=== PATIENT | female | born 1975 ===

== ENCOUNTER 2020-05-07 09:12 | Outpatient (REF) | payer OTHER, SELFPAY | END 2020-05-07 09:13 | disposition home or self-care (01) | LOC: HO.LAB 09:12 | PROVIDERS: Visit Provider Internal Medicine | DX: Z20.828 Contact with and (suspected) exposure to other viral communicable diseases (principal) | CPT/HCPCS: C9803; U0003 ==

== ENCOUNTER 2020-06-20 13:46 | Outpatient (REF) | payer OTHER, SELFPAY ==
--- NOTE | ~2020-06-20 | US_ITS ---
EXAMINATION: US THYROID CLINICAL INFORMATION: Thyroid nodule. COMPARISON: Ultrasound soft tissue head/neck thyroid dated 11/10/2019 and 04/23/2018. TECHNIQUE: Linear transducer grayscale and color Doppler examination with attention to the region of the thyroid. FINDINGS: SIZE: Measurements of the thyroid lobes and nodules are given in sagittal, anteroposterior and transverse dimensions respectively. Right Thyroid Lobe: 2.9 x 1.4 x 1.4 cm, volume 3.1 mL. Previously 3.1 x 1.6 x 1.5 cm, volume 3.9 mL. Parenchyma: The gland echotexture is homogeneous. Thyroid vascularity is normal. Left Thyroid Lobe: 2 x 0.9 x 1.0 cm, volume 0.9 mL. Previously 2.6 x 0.8 x 1.3 cm, volume 1.4 mL. Parenchyma: The gland echotexture is homogeneous. Thyroid vascularity is normal. Isthmus: 0.3 cm in maximum AP dimension. Previously 0.2 cm. Estimated total number of nodules greater than or equal to 1 cm: 1. Surg Physician Asst nodules are described as follows: 1. Location: Right mid. Size: 1.6 x 1.3 x 1.1 cm, volume 1.1 mL. Previously: 1.7 x 1.5 x 1.2 cm, volume 1.6 mL. Nodule characteristics: Composition: Solid (2). Echogenicity: Isoechoic (1). Shape: Not taller than wide (0). Margins: Smooth (0). Echogenic Foci: None (0). ACR TI-RADS total points: 3 ACR TI-RADS category: 3 Significant change in size (>/= 20% in 2 dimensions and minimal increase of 2 mm): None Change in features: None Change in ACR TI-RADS risk category: None NODES: No lymphadenopathy is seen in the tissue surrounding the thyroid gland. US/US thyroid IMPRESSION: Solitary nodule right mid pole, unchanged to previous study in size and characteristics. Recommend continued followup. ACR TI-RADS RECOMMENDATIONS: Ultrasound-guided fine-needle aspiration, followup ultrasound, no further follow up. * TR1 (0 point) and TR 2 (2 points): No FNA or follow up * TR3 (3 points): FNA if more than or equal to 2.5 cm in maximum dimension, follow up in 1, 3 and 5 years if 1.5 to 2.4 cm in maximum dimension. * TR4 (4-6 points): FNA if more than or equal to 1.5 cm in maximum dimension, follow up in 1, 2, 3 and 5 years if 1 to 1.4 cm in maximum dimension. * TR5 (more than or equal to 7 points): FNA if more than or equal to 1 cm in maximum dimension, follow up every year for 5 years if 0.5 to 0.9 cm in maximum dimension. * TR3, TR4 or TR5 nodules that are below the size threshold for follow up receive no follow up.
== END 2020-06-20 13:47 | disposition home or self-care (01) ==
LOC: HO.US 13:46
PROVIDERS: PCP Family Medicine; Visit Provider Internal Medicine Endocrinology, Diabetes & Metabolism
DX: E04.1 Nontoxic single thyroid nodule (principal)
CPT/HCPCS: 76536

== ENCOUNTER → 2020-07-06 09:00 | Outpatient (BNVA) | payer OTHER, SELFPAY | PROVIDERS: PCP Family Medicine; Visit Provider Internal Medicine Endocrinology, Diabetes & Metabolism | CPT/HCPCS: Q3014 ==

== ENCOUNTER 2020-08-02 20:36 | Emergency (ER) | payer OTHER, SELFPAY ==
[2020-08-02 20:55] VITALS: BP 124/74; PULSE 79; RESP 16; TEMP 36.9; O2SAT 99; BMI 29.7
--- NOTE | 2020-08-02 22:28 | ED.PSYCH ---
HPI - Psych General Chief Complaint: Psychiatric Symptoms Stated Complaint: depression Time Seen by Provider: 08/02/20 22:16 Source: patient Mode of arrival: ambulatory Limitations: no limitations History of Present Illness HPI Narrative: Patient comes to the emergency room complaining of depression. Patient denies suicidal or homicidal ideation. Patient does have a therapist and a psychiatrist, states she is compliant with the medication. Patient requesting to talk to somebody. Otherwise patient has no complaints. MD complaint: feels depressed Related Data Home Medications Medication Instructions Recorded Confirmed bupropion HCl 150 mg tablet,12 hr 0 mg PO 07/06/20 07/06/20 sustained-release buspirone 15 mg tablet 15 mg PO BID 07/06/20 07/06/20 cyanocobalamin (vitamin B-12) 1,000 mcg PO DAILY 07/06/20 07/06/20 1,000 mcg tablet docusate sodium 100 mg capsule 100 mg PO BID 07/06/20 07/06/20 risperidone 2 mg tablet 2 mg PO QAM 07/06/20 07/06/20 risperidone 4 mg tablet 4 mg PO BEDTIME 07/06/20 07/06/20 topiramate 50 mg tablet 50 mg PO DAILY 07/06/20 07/06/20 trazodone 50 mg tablet [id number] mg PO BEDTIME PRN 07/06/20 07/06/20 venlafaxine 150 mg 150 mg PO DAILY 07/06/20 07/06/20 capsule,extended release 24 hr Previous Rx's Medication Instructions Recorded cholecalciferol (vitamin D3) 125 5,000 unit PO DAILY 90 Days #90 cap 07/06/20 mcg (5,000 unit) capsule finasteride 5 mg tablet 5 mg PO DAILY 90 Days #90 tab 07/06/20 levothyroxine 125 mcg tablet 125 mcg PO QAM 90 Days #90 tab 07/06/20 metformin 500 mg tablet,extended 500 mg PO BEDTIME 90 Days #90 tab 07/06/20 release 24 hr pravastatin 20 mg tablet 20 mg PO DAILY 90 Days #90 tab 07/06/20 Allergies Allergy/AdvReac Type Severity Reaction Status Date / Time No Known Allergies Allergy Unverified 08/02/20 21:16 seasonal allergies Allergy Unknown Nasal Uncoded 08/02/20 21:16 congestion Review of Systems Review of Systems: Constitutional : No Weight loss, No Fever, No Chills, No Night Sweats, No Fatigue, No Malaise ENT/Mouth : No Hearing loss, No Ear Pain, No Nasal Congestion, No Sinus Pain, No Hoarseness, No sore throat, No Rhinorrhea, No Swallowing Difficulty Eyes: No Eye Pain, No Swelling, No Redness, No Foreign Body, No Discharge, No Vision Changes Cardiovascular : No Chest Pain, No SOB, No Dyspnea on Exertion, No Orthopnea, No Edema, No Palpitations Respiratory : No Cough, No Sputum, No Wheezing, No Smoke Exposure, No Dyspnea Gastrointestinal : No Nausea, No Vomiting, No Diarrhea, No Constipation, No abdominal Pain, No Hematochezia, No Melena Genitourinary : no irregular bleeding, No Dysuria, No Urinary Frequency, No Hematuria, No Urinary Incontinence, No Urgency, No Flank Pain, No Urinary Flow Changes, No Hesitancy Musculoskeletal : No joint pain, No Myalgias, No Joint Swelling Skin : No Skin Lesions, No rash Neuro : No Weakness, No Numbness, No Paresthesias, No Loss of Consciousness, No Dizziness, No Headache Psych : No Anxiety/Panic, complaining of depression, No SI/HI/AH/VH, No Social Issues, Heme/Lymph: No Bruising, No Bleeding,No Lymphadenopathy Endocrine : No Polyuria, No Polydipsia, No Temperature Intolerance PMFSH Past Medical History Medical History Bipolar disorder Dyslipidemia Hypothyroidism Obesity (BMI 30-39.9) PCOS (polycystic ovarian syndrome) Thyroid nodule Vitamin D deficiency Surgical History History of surgical removal of skin lesion Family History Family History Father No problems noted. Mother No problems noted. Maternal Grandmother Diabetes mellitus Social History Social History (Updated 07/06/20 @ 09:13 by KYA Finnegan) Smoking Status: Former smoker Advance Directives: No Advance Directives Information Provided: No Physical Exam Vital Signs: Vital Signs: Last Vital Signs Temp 98.4 F 08/02/20 20:55 Pulse 79 08/02/20 20:55 Resp 16 08/02/20 20:55 BP 124/74 08/02/20 20:55 Pulse Ox 99 08/02/20 20:55 Body Mass Index 29.7 Appearance: Alert. Oriented X3. No acute distress. Eyes: Pupils equal, round and reactive to light. ENT: Pharynx normal. Neck: Normal inspection. Neck supple. No lymph nodes noted. No crepitus CVS: Normal heart rate and rhythm. Pulses normal. Normal S1 and S2 Respiratory: No respiratory distress. Breath sounds normal. No Wheezing. No rales Abdomen: Soft and nontender. No rigidity. No distention. good BS x4 Skin: Skin warm and dry. Normal skin color. Normal skin turgor. Extremities: No lower extremity edema. No lower extremity edema. No Lacerations. No Rash Neuro: Oriented X 3. No motor deficit. No sensory deficit. Moving all extermities. No slurred speech. Course Course Course Narrative: Care Team consult pending Care team evaluated the patient, patient was offered partial hospitalization, given information. Patient continues denying suicidal homicidal ideation. Patient ready for discharge Discharge Plan Discharge Clinical Impression: Depression Qualifiers: Depression Type: unspecified Qualified Code(s): F32.9 - Major depressive disorder, single episode, unspecified Patient Disposition: Home, Self-Care Instructions: Depression (ED) Additional Instructions: Please follow-up with your primary care physician tomorrow. If you have any worsening or new symptoms, please return to the emergency room or call 911 Prescriptions: No Action docusate sodium 100 mg capsule 100 mg PO BID RF: 0 risperidone 2 mg tablet 2 mg PO QAM RF: 0 risperidone 4 mg tablet 4 mg PO BEDTIME RF: 0 cyanocobalamin (vitamin B-12) 1,000 mcg tablet 1,000 mcg PO DAILY RF: 0 topiramate 50 mg tablet 50 mg PO DAILY RF: 0 buspirone 15 mg tablet 15 mg PO BID RF: 0 venlafaxine 150 mg capsule,extended release 24hr 150 mg PO DAILY RF: 0 trazodone 50 mg tablet [id number] mg PO BEDTIME PRNRF: 0 bupropion HCl 150 mg tablet sustained-release 12 hr 0 mg PO RF: 0 finasteride 5 mg tablet 5 mg PO DAILY 90 Days Qty: 90 RF: 2 metformin 500 mg tablet extended release 24 hr 500 mg PO BEDTIME 90 Days Qty: 90 RF: 1 levothyroxine 125 mcg tablet 125 mcg PO QAM 90 Days Qty: 90 RF: 3 cholecalciferol (vitamin D3) 125 mcg (5,000 unit) capsule 5,000 unit PO DAILY 90 Days Qty: 90 RF: 1 pravastatin 20 mg tablet 20 mg PO DAILY 90 Days Qty: 90 RF: 1
--- NOTE | 2020-08-02 22:48 | MHC.CARE ---
CARE team support requested for 45 year old female who presented to ED endorsing worsening symptoms of depression and wanting someone to talk to. Pt reported that she has been feeling more depressed over the past 3 days and doesn't feel that her medications have been helpful. Pt wasn't able to identify a specific trigger, though did share that her depressed and anxious moods tend to coincide with things going wrong. Pt denied experiencing any thoughts of or suicide, recent attempts to harm herself, and thoughts or urges to harm others. Pt denied experiencing AVH and did not present as responding to internal stimuli. Pt has a history of command auditory hallucinations telling her to harm herself and one past suicide attempt via intentional overdose. Pt's medications are locked up and administered by a visiting nurse each day. Pt reported that she lives with her 18 year old daughter and her dog, and has several close friends whom she sees and speaks to on a daily basis. Pt is connected with a therapist (Caitlin Lugo) and a psychiatrist (Dr. Ruiz) through [facility] and has worked with both of them for many years. Pt's last appt with Dr. Ruiz was 06/13/20 and she doesn't have an upcoming appt scheduled at this time, and pt's last session with her therapist was on 07/13/20 and pt has been trying to reschedule an appt she missed last week. Pt was encouraged to reach out to both her psychiatrist and her therapist to schedule appointments, and to speak with her therapist about transitioning from biweekly to weekly sessions to provide additional support. This pattern chart writer spoke with pt about PHP, and pt declined interest in the program at this time however accepted information pamphlet and contact information if she were to change her mind. ED provider updated re: recommendations and resources provided.
== END 2020-08-02 23:12 | disposition home or self-care (01) ==
PROVIDERS: Emergency Provider Emergency Medicine; PCP Family Medicine
DX: F32.9 Major depressive disorder, single episode, unspecified (principal); E78.5 Hyperlipidemia, unspecified; Z79.899 Other long term (current) drug therapy; Z87.891 Personal history of nicotine dependence
CPT/HCPCS: 99283

== ENCOUNTER 2020-11-24 08:54 | Outpatient (REF) | payer OTHER, SELFPAY ==
[2020-11-24 10:23] LABS: Estimated Average Glucose 103 mg/dL; Hemoglobin A1c % 5.2 %
[2020-11-24 11:03] LABS: Alanine Aminotransferase 15 U/L (0-31); Albumin Level 4.2 g/dL (3.5-5.0); Alkaline Phosphatase 67 U/L (39-117); Anion Gap 11 (12-20); Aspartate Amino Transferase 16 U/L (5-31); Bilirubin Total 0.5 mg/dL (0.0-1.0); Blood Urea Nitrogen 12 mg/dL (9-16); Calcium 9.9 mg/dL (8.4-10.2); Carbon Dioxide 26 mmol/L (22-29); Chloride 109 mmol/L (96-108); Cholesterol 167 mg/dL; Estimated Glomerular Filt Rate > 60; Glucose Fasting 95 mg/dL (60-99); HDL Cholesterol 53 mg/dL; LDL Cholesterol Calculated 92 mg/dl; Potassium 4.8 mmol/L (3.3-5.1); Sodium 141 mmol/L (135-145); Total Protein 6.7 g/dL (6.5-8.0); Triglycerides 112 mg/dL
[2020-11-24 11:24] LABS: Free T4 (Free Thyroxine) 1.24 ng/dL (0.71-1.85); Thyroid Stimulating Hormone 0.09 uIU/mL (0.32-4.0); Vitamin D 25-OH Total 63.8 ng/mL (>30)
[2020-11-24 11:29] LABS: Vitamin B12 1698 pg/mL (200-900)
[2020-11-26 05:37] LABS: Sex Hormone Binding Globulin 78 nmol/L (17-124)
[2020-11-26 08:52] LABS: LDL Cholesterol Direct 120 mg/dL (<100)
[2020-11-29 18:41] LABS: Testosterone, Free 8.1 pg/mL (0.1-6.4); Testosterone, Total 89 ng/dL (2-45)
== END 2020-11-24 08:55 | disposition home or self-care (01) ==
LOC: CF 08:54
PROVIDERS: PCP Family Medicine; Visit Provider Internal Medicine Endocrinology, Diabetes & Metabolism
DX: E28.2 Polycystic ovarian syndrome (principal); E55.9 Vitamin D deficiency, unspecified; E89.0 Postprocedural hypothyroidism; E66.9 Obesity, unspecified; E78.5 Hyperlipidemia, unspecified; Z79.899 Other long term (current) drug therapy
CPT/HCPCS: 36415; 80053; 80061; 82306; 82607; 83036; 83721; 84270; 84402; 84403; 84439; 84443; 99212

== ENCOUNTER 2020-12-12 11:21 | Emergency (ER) | payer OTHER, SELFPAY ==
--- NOTE | ~2020-12-12 | CT_ITS ---
EXAMINATION: CT HEAD WITHOUT CONTRAST CLINICAL INFORMATION: Headache. COMPARISON: None TECHNIQUE: Contiguous axial imaging was performed from the skull base to vertex without intravenous administration of contrast. This CT examination was performed using dose optimization techniques as appropriate, variously including the following: *Automated exposure control *Adjustment of mA and/or kV according to patient size (this includes techniques or standardized protocols for targeted exams where dose is matched to indication/reason for exam; i.e. extremities or head) *Use of iterative reconstruction technique DLP: 763 mGy-cm FINDINGS: There is no evidence of acute intracranial hemorrhage or territorial infarction. No abnormal mass effect or midline shift is seen. Parham to white matter differentiation is well preserved. No extra-axial fluid collections are identified. The ventricles are normal in size. There is no abnormal attenuation within the brain parenchyma. The osseous structures and soft tissues are normal. The mastoid air cells and visualized portions of the paranasal sinuses are well aerated. CT/CT head/brain wo con IMPRESSION: No acute intracranial process seen.
[2020-12-12 13:31] VITALS: BP 126/60; PULSE 71; RESP 18; TEMP 36.8; O2SAT 98; BMI 28.0
--- NOTE | 2020-12-12 14:58 | ED.GENADULT ---
HPI - General Adult General Chief complaint: General Medical Stated complaint: multiple complaints Time Seen by Provider: 12/12/20 14:34 Source: patient and ophthalmic nurse Mode of arrival: ambulatory Limitations: no limitations History of Present Illness HPI narrative: 45-year-old female came in for evaluation of headache. Headache started a week ago, discarded has mild headache 5/10, constant for the past week but fluctuates, deemed not radiate, pain is associated with nausea but no vomiting, also associated with blurry vision, feeling pins and needle in both sides of upper and lower extremities. Patient with history polycystic ovarian syndrome, patient just started spironolactone 10 days ago that patient's think her symptoms is related to this medication. Related Data Home Medications Medication Instructions Recorded Confirmed buspirone 15 mg tablet 15 mg PO BID 07/06/20 11/24/20 cyanocobalamin (vitamin B-12) 1,000 mcg PO DAILY 07/06/20 11/24/20 1,000 mcg tablet docusate sodium 100 mg capsule 100 mg PO BID 07/06/20 11/24/20 risperidone 2 mg tablet 2 mg PO QAM 07/06/20 11/24/20 risperidone 4 mg tablet 4 mg PO BEDTIME 07/06/20 11/24/20 topiramate 50 mg tablet 50 mg PO DAILY 07/06/20 11/24/20 trazodone 50 mg tablet [id number] mg PO BEDTIME PRN 07/06/20 11/24/20 venlafaxine 150 mg 150 mg PO DAILY 07/06/20 11/24/20 capsule,extended release 24 hr bupropion HCl 150 mg tablet,12 hr 150 mg PO DAILY tab 11/24/20 11/24/20 sustained-release cetirizine 10 mg tablet 10 mg PO DAILY PRN 11/24/20 11/24/20 Previous Rx's Medication Instructions Recorded pravastatin 20 mg tablet 20 mg PO DAILY 90 Days #90 tab 07/06/20 cholecalciferol (vitamin D3) 125 5,000 unit PO DAILY 90 Days #90 cap 11/24/20 mcg (5,000 unit) capsule finasteride 5 mg tablet 5 mg PO DAILY 90 Days #90 tab 11/24/20 levothyroxine 112 mcg tablet 112 mcg PO DAILY 90 Days #90 tab NS 11/24/20 metformin 500 mg tablet,extended 500 mg PO BEDTIME 90 Days #90 tab 11/24/20 release 24 hr spironolactone 25 mg tablet 25 mg PO BID 30 Days #60 tab 11/30/20 Allergies Allergy/AdvReac Type Severity Reaction Status Date / Time No Known Allergies Allergy Unverified 08/02/20 21:16 seasonal allergies Allergy Unknown Nasal Uncoded 08/02/20 21:16 congestion Review of Systems Review of Systems: All other systems are reviewed and are negative Constitutional: Reports as per HPI and Reports no additional constitutional complaints Eyes: Reports as per HPI and Reports no additional eye complaints Reports system reviewed and no additional complaints, except as documented Cardiovascular: Reports as per HPI and Reports no additional cardiovascular complaints Respiratory: Reports as per HPI and Reports no additional respiratory complaints Gastrointestinal: Reports as per HPI and Reports no additional gastrointestinal complaints Genitourinary: Reports no additional female genitourinary complaints Musculoskeletal: Reports no additional musculoskeletal complaints Skin/Breast: Reports system reviewed and no additional complaints, except as docu Psychiatric: Reports no additional psychiatric complaints Endocrine: Reports no additional endocrine complaints Hematologic/Lymphatic: Reports no additional hematologic/lymphatic complaints Allergic/Immunologic: Reports no additional allergic/immunologic complaints Reports system reviewed and no additional complaints, except as documented and Reports Abnormal speech present [facility] Past Medical History Medical History Bipolar disorder Dyslipidemia Hypothyroidism Obesity (BMI 30-39.9) PCOS (polycystic ovarian syndrome) Thyroid nodule Vitamin D deficiency Surgical History History of surgical removal of skin lesion Family History Family History Father No problems noted. Mother No problems noted. Maternal Grandmother Diabetes mellitus Social History Social History Alcohol intake: never Smoked in Last 30 Days: No Use of substances other than those prescribed or required for medical reasons: No Advance Directives: No Advance Directives Information Provided: No Patient : No Physical Exam Vital Signs: Vital Signs: Last Vital Signs Temp 98.3 F 12/12/20 13:31 Pulse 71 12/12/20 13:31 Resp 18 12/12/20 13:31 BP 126/60 12/12/20 13:31 Pulse Ox 98 12/12/20 13:31 Body Mass Index 28.0 Vital signs have been reviewed as appeared to be correct. Blood pressure normal. Heart rate normal. Respiration rate normal. Temperature normal. Oxygen saturation normal. Appearance: Alert. Oriented X3. No acute distress. Head: Normal external exam. Normocephalic. Atraumatic. No Stewart signs noted. No raccoon eyes noted Eyes: PERRLA. EOMI. Conjunctiva and sclera normal. Eyelids normal. ENT: TM's Normal. Pharynx normal. Uvula midline. Moist mucous membranes. No trismus noted. No drooling noted. No muffled voice noted. Neck: Normal inspection. Neck supple. FROM. No adenopathy. Thyroid Normal. No meningeal signs. No neck mass noted. CVS: Normal heart rate and rhythm. Heart sound normal. No murmurs noted. Pulses normal throughout. Respiratory: No respiratory distress. Painless inspiration. Breath sounds normal. No wheezes/rales/rhonchi noted. Chest nontender. No accessory muscle usage noted or decreased air movement noted. Abdomen: Soft and nontender. Bowel sounds normal in all 4 quadrants. No distention noted. No organomegaly noted. No visible injury noted. Back: No CVA tenderness. Full range of motion noted. Skin: Skin warm and dry. Normal skin color. Normal skin turgor. No rashes/lesions/lacerations noted. Extremities: No lower extremity edema. Extremities exhibit normal range of motion. Extremities nontender. Neuro: Oriented X 3. No motor deficit. No sensory deficit. Reflexes normal. Course Course Course Narrative: Assessment and plan. 45-year-old female came in with nonspecific headache for few weeks, patient has a normal neuro exam, normal CT of the head, no urinary tract infection symptoms. Patient in the room on her phone appear very comfortable with no photophobia or neck stiffness. Patient will be discharged to follow-up with her PCP/OBGYN patient's symptoms can be secondary to spironolactone that she use for hormonaltherapy for polycystic ovarian syndrome. Medical Decision Making Lab Data Lab results reviewed: Yes I reviewed the patient's lab results. Result diagrams: 12/12/20 15:22 12/12/20 15:22 Labs: Lab Results 12/12/20 12/12/20 12/12/20 Range/Units 15:12 15:22 15:22 WBC 7.4 (4.8-10.8) X10*3/uL RBC 5.18 (4.20-5.50) X10*6/uL Hgb 13.6 (12.0-16.0) g/dl Hct 41.3 (37-47) % MCV 79.7 L (80-98) fL MCH 26.3 L (27.0-33.0) pg MCHC 32.9 (31.0-35.0) g/dl RDW 13.3 (11.0-16.0) % Plt Count 288 (160-400) X10*3/uL MPV 11.0 (9.4-12.3) fL Absolute Nucleated RBC 0.000 (0.0-0.012) X10*3/uL Nucleated RBC % (auto) 0.0 (0.0-0.2) /100WBC Sodium 140 (135-145) mmol/L Potassium 4.5 (3.3-5.1) mmol/L Chloride 107 (96-108) mmol/L Carbon Dioxide 23 (22-29) mmol/L Anion Gap 15 (12-20) BUN 13 (9-16) mg/dL Creatinine 0.71 (0.5-1.4) mg/dL Estim Creat Clear Calc 106.0 Estimated GFR > 60 Random Glucose 88 (60-115) mg/dL Calcium 9.5 (8.4-10.2) mg/dL Urine Color YELLOW Urine Appearance HAZY Urine pH 6.0 (5.0-8.0) Ur Specific Douglas >= 1.030 H (1.005-1.025) Urine Protein NEG (NEG-TRACE) MG/DL Urine Glucose (UA) NEG (NEG) MG/DL Urine Ketones NEG (NEG) MG/DL Urine Blood NEG (NEG) Urine Nitrite NEG (NEG) Ur Leukocyte Esterase 2+ H (NEG) Urine RBC 0 (0) /HPF Urine WBC 0 (0-4) /HPF Ur Squamous Epith Cells 2+ /LPF Urine Bacteria 2+ /LPF Imaging Data CT scan - head: Radiologist's impression: No acute intracranial process seen. Discharge Plan Discharge Clinical Impression: Headache Patient Disposition: Home, Self-Care Instructions: General Headache (ED) Prescriptions: No Action levothyroxine 112 mcg tablet 112 mcg PO DAILY 90 Days Qty: 90 RF: 3 spironolactone 25 mg tablet 25 mg PO BID 30 Days Qty: 60 RF: 5 cetirizine 10 mg tablet 10 mg PO DAILY PRN (Reason: allergies) RF: 0 cholecalciferol (vitamin D3) 125 mcg (5,000 unit) capsule 5,000 unit PO DAILY 90 Days Qty: 90 RF: 1 finasteride 5 mg tablet 5 mg PO DAILY 90 Days Qty: 90 RF: 2 metformin 500 mg tablet extended release 24 hr 500 mg PO BEDTIME 90 Days Qty: 90 RF: 1 docusate sodium 100 mg capsule 100 mg PO BID RF: 0 risperidone 2 mg tablet 2 mg PO QAM RF: 0 risperidone 4 mg tablet 4 mg PO BEDTIME RF: 0 cyanocobalamin (vitamin B-12) 1,000 mcg tablet 1,000 mcg PO DAILY RF: 0 topiramate 50 mg tablet 50 mg PO DAILY RF: 0 buspirone 15 mg tablet 15 mg PO BID RF: 0 venlafaxine 150 mg capsule,extended release 24hr 150 mg PO DAILY RF: 0 trazodone 50 mg tablet [id number] mg PO BEDTIME PRNRF: 0 pravastatin 20 mg tablet 20 mg PO DAILY 90 Days Qty: 90 RF: 1 bupropion HCl 150 mg tablet sustained-release 12 hr 150 mg PO DAILY RF: 0 Referrals: Heidi Gomez MD [Primary Care Provider] - 2 days
[2020-12-12 15:18] LABS: Glucose Urine UA NEG (NEG); Leukocyte Esterase Urine 2+ (NEG); Nitrite Urine NEG (NEG); Specific Gravity - Urine >= 1.030 (1.005-1.025); UACC Culture Trigger YES; Urine Blood NEG (NEG); Urine Ketones NEG (NEG); Urine Protein NEG (NEG-TRACE)
[2020-12-12 15:20] LABS: Appearance Urine HAZY; Color Urine YELLOW
[2020-12-12] MEDS: Acetaminophen 325 MG TABLET 650 MG PO (15:28)
[2020-12-12 15:30] LABS: Hematocrit 41.3 % (37-47); Hemoglobin 13.6 g/dl (12.0-16.0); Mean Corpuscular HGB Conc 32.9 g/dl (31.0-35.0); Mean Corpuscular Hemoglobin 26.3 pg (27.0-33.0); Mean Corpuscular Volume 79.7 fL (80-98); Platelet Count 288 X10*3/uL (160-400); Red Blood Count 5.18 X10*6/uL (4.20-5.50); Red Cell Distribution Width 13.3 % (11.0-16.0); White Blood Count 7.4 X10*3/uL (4.8-10.8)
[2020-12-12 15:32] LABS: Bacteria Urine 2+ /LPF; RBC Urine 0 /HPF (0); Squamous Epithelial Cell Urine 2+ /LPF; WBC Urine 0 /HPF (0-4)
[2020-12-12 15:51] LABS: Anion Gap 15 (12-20); Blood Urea Nitrogen 13 mg/dL (9-16); Calcium 9.5 mg/dL (8.4-10.2); Carbon Dioxide 23 mmol/L (22-29); Chloride 107 mmol/L (96-108); Estimated Glomerular Filt Rate > 60; Glucose Random 88 mg/dL (60-115); Potassium 4.5 mmol/L (3.3-5.1); Sodium 140 mmol/L (135-145)
== END 2020-12-12 17:20 | disposition home or self-care (01) ==
PROVIDERS: Emergency Provider Emergency Medicine; PCP Family Medicine
DX: R51.9 Headache, unspecified (principal)
CPT/HCPCS: 36415; 70450; 80048; 81001; 85027; 87086; 99284

== ENCOUNTER → 2020-12-19 11:38 | Outpatient (BNVA) | payer OTHER, SELFPAY | PROVIDERS: PCP Family Medicine; Visit Provider Internal Medicine | DX: Z13.89 Encounter for screening for other disorder (principal) | CPT/HCPCS: Q3014 ==

== ENCOUNTER 2021-01-05 11:55 | Outpatient (REF) | payer OTHER, SELFPAY ==
--- NOTE | ~2021-01-05 | MM_ITS ---
EXAMINATION: MM SCREENING DIGITAL BREAST TOMOSYNTHESIS, BILATERAL CLINICAL INFORMATION: Screening. Asymptomatic. The lifetime risk of breast cancer based on the Tyrer-Cuzick Model is 9.9%. COMPARISON: Mammography: December 18, 2018 and studies dating back to July 10, 2016 TECHNIQUE: Digital breast tomosynthesis is performed in both the craniocaudal and mediolateral oblique views along with computer-aided detection (CAD). Synthesized 2D images are generated from the tomosynthesis. FINDINGS: There are scattered areas of fibroglandular density (ACR BI-RADS breast composition Category b). There are no significant masses, abnormal calcifications, or other abnormalities. MM/MM tomosynthesis screening BI IMPRESSION: There are no significant changes from prior study. ASSESSMENT: BI-RADS 1: Negative RECOMMENDATION: Routine annual mammography screening. This patient's information was entered into a reminder system with a target due date for their next mammogram.
== END 2021-01-05 11:56 | disposition home or self-care (01) ==
LOC: HO.MAMMO 11:55
PROVIDERS: Visit Provider Family Medicine
DX: Z12.31 Encounter for screening mammogram for malignant neoplasm of breast (principal)
CPT/HCPCS: 77063; 77067

== ENCOUNTER 2021-01-07 08:34 | Outpatient (REF) | payer OTHER, SELFPAY ==
[2021-01-07 09:43] LABS: Estimated Average Glucose 97 mg/dL; Hemoglobin A1C 110.4876 umol/L
[2021-01-07 09:45] LABS: Alanine Aminotransferase 12 U/L (0-31); Albumin Level 4.5 g/dL (3.5-5.0); Alkaline Phosphatase 64 U/L (39-117); Anion Gap 10 (12-20); Aspartate Amino Transferase 15 U/L (5-31); Bilirubin Total 0.7 mg/dL (0.0-1.0); Blood Urea Nitrogen 12 mg/dL (9-16); Calcium 9.5 mg/dL (8.4-10.2); Carbon Dioxide 24 mmol/L (22-29); Chloride 108 mmol/L (96-108); Estimated Glomerular Filt Rate > 60; Glucose Random 97 mg/dL (60-115); Potassium 4.3 mmol/L (3.3-5.1); Sodium 138 mmol/L (135-145); Total Protein 7.1 g/dL (6.5-8.0)
[2021-01-07 09:48] LABS: Glucose Fasting 97 mg/dL (60-99)
[2021-01-07 09:59] LABS: Free T4 (Free Thyroxine) 1.09 ng/dL (0.71-1.85); HCG Quantitative < 2 mIU/mL; Thyroid Stimulating Hormone 0.69 uIU/mL (0.32-4.0); Vitamin D 25-OH Total 65.3 ng/mL (>30)
[2021-01-07 10:48] LABS: Glucose 1 Hour 125 mg/dL
[2021-01-07 11:35] LABS: Glucose 2 Hour 100 mg/dL
[2021-01-08 08:31] LABS: Lutenizing Hormone 4.2 mIU/mL; Prolactin 13.4 ng/mL
[2021-01-09 22:37] LABS: Adrenocorticotropic Hormone 10 pg/mL (6-50)
[2021-01-11 20:56] LABS: Androstenedione 51 ng/dL
[2021-01-12 20:51] LABS: Testosterone, Free 1.6 pg/mL (0.1-6.4); Testosterone, Total 21 ng/dL (2-45)
[2021-01-13 19:26] LABS: DHEA Sulfate 24 mcg/dL (19-231); Sex Hormone Binding Globulin 105 nmol/L (17-124)
[2021-01-19 01:40] LABS: Estradiol Free 0.89 pg/mL; Estradiol, Ultrasensitive 54 pg/mL
== END 2021-01-07 08:35 | disposition home or self-care (01) ==
LOC: HO.LAB 08:34
PROVIDERS: PCP Family Medicine; Visit Provider Internal Medicine
DX: E28.8 Other ovarian dysfunction (principal); E55.9 Vitamin D deficiency, unspecified
CPT/HCPCS: 36415; 80053; 82024; 82157; 82306; 82533; 82627; 82670; 82681; 83001; 83002; 83036; 83498; 84146; 84270; 84402; 84403; 84439; 84443; 84702

== ENCOUNTER 2021-01-25 08:29 | Outpatient (REF) | payer OTHER, SELFPAY ==
[2021-01-26 20:56] LABS: Adrenocorticotropic Hormone 9 pg/mL (6-50)
[2021-01-27 02:22] LABS: Cortisol 30 Minute 24.3 mcg/dL; Cortisol 60 Minute 28.1 mcg/dL; Cortisol Baseline 5.9 mcg/dL
== END 2021-01-25 08:30 | disposition home or self-care (01) ==
LOC: HO.MDS 08:29
PROVIDERS: PCP Family Medicine; Visit Provider Internal Medicine
DX: E27.40 Unspecified adrenocortical insufficiency (principal)
CPT/HCPCS: 36415; 82024; 82533; 96374; J0834

== ENCOUNTER 2021-02-01 07:47 | Outpatient (REF) | payer OTHER, SELFPAY ==
--- NOTE | ~2021-02-01 | CT_ITS ---
EXAMINATION: CT ABDOMEN WITHOUT AND WITH CONTRAST CLINICAL INFORMATION: Ovarian dysfunction. Adrenal protocol. COMPARISON: CT abdomen from 09/15/2017. TECHNIQUE: Multidetector CT imaging examination the abdomen. Initial images were obtained without IV contrast. Then, imaging was repeated in the venous phase and at a 10 minute delay after IV administration of 85 mL Omnipaque 350. This CT examination was performed using dose optimization techniques as appropriate, variously including the following: *Automated exposure control *Adjustment of mA and/or kV according to patient size (this includes techniques or standardized protocols for targeted exams where dose is matched to indication/reason for exam; i.e. extremities or head) *Use of iterative reconstruction technique DLP: 680 mGy-cm FINDINGS: LUNG BASES: Normal. No pulmonary consolidation or pleural effusion at either lung base. LIVER: The liver has normal size, shape, and attenuation. No evidence of liver mass. GALLBLADDER AND BILIARY TREE: Gallbladder is surgically absent. No bile duct dilatation. PANCREAS: Normal. No edema, pancreatic ductal dilatation or mass. SPLEEN: Normal. ADRENAL GLANDS: Normal. KIDNEYS AND URETERS: The kidneys have normal size and cortical thickness. No mass or perinephric fluid collection. No urolithiasis or hydroureteronephrosis. BOWEL AND PERITONEUM: Stomach is unremarkable. No dilated loops of bowel. No bowel wall thickening or mesenteric fat stranding. No ascites or pneumoperitoneum. ABDOMINAL WALL: Unremarkable. VASCULATURE: Abdominal aorta is normal in caliber. The celiac trunk, SMA, HARRIS and renal arteries are widely patent. Inferior vena cava and renal veins are normal. LYMPH NODES: No pathologic sized lymph nodes. SKELETAL: No suspicious bone lesions. The visualized lower thoracic and lumbar vertebra have normal height and alignment. Osteophytes and enthesophytes are noted at multiple levels. There are a few foci of posterior longitudinal ossification of the visualized spine. CT/CT abdomen wo/w con IMPRESSION: Multiphase contrast-enhanced examination of the abdomen shows normal adrenal glands. No adrenal nodule or retroperitoneal mass.
[2021-02-01] MEDS: iohexoL 350 MG/ML 100 ML INFUS..BTL IV (09:30)
== END 2021-02-01 07:48 | disposition home or self-care (01) ==
LOC: HO.CT 07:47
PROVIDERS: PCP Family Medicine; Visit Provider Internal Medicine
DX: E28.8 Other ovarian dysfunction (principal)
CPT/HCPCS: 74170; Q9967

== ENCOUNTER → 2021-03-06 14:37 | Outpatient (BNVA) | payer OTHER, SELFPAY | PROVIDERS: PCP Family Medicine; Visit Provider Internal Medicine | DX: E28.8 Other ovarian dysfunction (principal); E04.1 Nontoxic single thyroid nodule; E89.0 Postprocedural hypothyroidism; E55.9 Vitamin D deficiency, unspecified | CPT/HCPCS: 99212 ==

== ENCOUNTER 2021-03-08 06:56 | Outpatient (REF) | payer OTHER, SELFPAY ==
[2021-03-08 08:40] LABS: Alanine Aminotransferase 11 U/L (0-31); Albumin Level 4.6 g/dL (3.5-5.0); Alkaline Phosphatase 63 U/L (39-117); Anion Gap 14 (12-20); Aspartate Amino Transferase 14 U/L (5-31); Bilirubin Total 0.6 mg/dL (0.0-1.0); Blood Urea Nitrogen 12 mg/dL (9-16); Calcium 9.5 mg/dL (8.4-10.2); Carbon Dioxide 22 mmol/L (22-29); Chloride 110 mmol/L (96-108); Estimated Glomerular Filt Rate > 60; Glucose Random 109 mg/dL (60-115); Sodium 141 mmol/L (135-145); Total Protein 7.4 g/dL (6.5-8.0)
[2021-03-08 12:32] LABS: Cortisol Random < 1.0 ug/dL
[2021-03-09 17:01] LABS: Adrenocorticotropic Hormone <5 pg/mL (6-50)
[2021-03-15 12:57] LABS: Dexamethasone 143 ng/dL
== END 2021-03-08 06:57 | disposition home or self-care (01) ==
LOC: HO.LAB 06:56
PROVIDERS: Internal Medicine Endocrinology, Diabetes & Metabolism; PCP Family Medicine; Visit Provider Internal Medicine
DX: E28.2 Polycystic ovarian syndrome (principal)
CPT/HCPCS: 36415; 80053; 80299; 82024; 82533

== ENCOUNTER 2021-03-29 10:18 | Outpatient (REF) | payer OTHER, SELFPAY ==
--- NOTE | ~2021-03-29 | US_ITS ---
EXAMINATION: PELVIC ULTRASOUND CLINICAL INFORMATION: Ovarian dysfunction COMPARISON: Previous CT of the abdomen and pelvis most recent January 2021, MRI of the pelvis September 2016 and pelvic ultrasound August 2016 TECHNIQUE: Transabdominal and transvaginal pelvic ultrasound was performed. Transvaginal exam was performed for better visualization of the uterus and ovaries. FINDINGS: The uterus is anteverted and measures 8.7 x 4.1 x 6.3 cm in dimension. Uterus appears heterogeneous in echotexture. No focal uterine lesion is seen. Endometrial thickness is normal measuring 0.7 cm. There are nabothian cysts in the cervix. Both ovaries are prominent. The right ovary measures 4 x 3.2 x 2.7 cm and the left ovary measures 3.6 x 2.4 x 3.2 cm. The ovaries appear echogenic. There are several small peripheral cysts or follicles. September 2016 pelvic MRI demonstrated polycystic appearance of the ovaries which was at not as well appreciated on previous ultrasound August 2016. There is a 1.6 x 1.5 x 0.8 cm heterogeneous partially hypoechoic partially hyperechoic lesion in the left ovary probably representing a complex cyst. There is no fluid in the pelvis. US/US pelvic complete IMPRESSION: Probable polycystic ovaries. 1.6 x 1.5 x 0.8 cm heterogeneous lesion in the left ovary probably representing a complex cyst.
--- NOTE | ~2021-03-29 | US_ITS ---
EXAMINATION: PELVIC ULTRASOUND CLINICAL INFORMATION: Ovarian dysfunction COMPARISON: Previous CT of the abdomen and pelvis most recent January 2021, MRI of the pelvis September 2016 and pelvic ultrasound August 2016 TECHNIQUE: Transabdominal and transvaginal pelvic ultrasound was performed. Transvaginal exam was performed for better visualization of the uterus and ovaries. FINDINGS: The uterus is anteverted and measures 8.7 x 4.1 x 6.3 cm in dimension. Uterus appears heterogeneous in echotexture. No focal uterine lesion is seen. Endometrial thickness is normal measuring 0.7 cm. There are nabothian cysts in the cervix. Both ovaries are prominent. The right ovary measures 4 x 3.2 x 2.7 cm and the left ovary measures 3.6 x 2.4 x 3.2 cm. The ovaries appear echogenic. There are several small peripheral cysts or follicles. September 2016 pelvic MRI demonstrated polycystic appearance of the ovaries which was at not as well appreciated on previous ultrasound August 2016. There is a 1.6 x 1.5 x 0.8 cm heterogeneous partially hypoechoic partially hyperechoic lesion in the left ovary probably representing a complex cyst. There is no fluid in the pelvis. US/US transvaginal IMPRESSION: Probable polycystic ovaries. 1.6 x 1.5 x 0.8 cm heterogeneous lesion in the left ovary probably representing a complex cyst.
== END 2021-03-29 10:19 | disposition home or self-care (01) ==
LOC: HO.US 10:18
PROVIDERS: PCP Family Medicine; Visit Provider Internal Medicine
DX: E28.8 Other ovarian dysfunction (principal)
CPT/HCPCS: 76830; 76856

== ENCOUNTER 2021-04-17 11:47 | Outpatient (REF) | payer OTHER, SELFPAY ==
[2021-04-18 05:35] LABS: CT PCR NOT DETECTED (Not Detect.); NG PCR NOT DETECTED (Not Detect.)
[2021-04-19 07:46] LABS: CA-125 10 U/mL (<35)
[2021-04-22 22:11] LABS: HPV 16 RNA NOT DETECTED (NOT DETECTED); HPV mRNA E6/E7 rflx Detected (Not Detected)
== END 2021-04-17 11:48 | disposition home or self-care (01) ==
LOC: HO.LAB 11:47
PROVIDERS: PCP Family Medicine; Visit Provider Obstetrics & Gynecology
DX: Z01.411 Encounter for gynecological examination (general) (routine) with abnormal findings (principal); Z11.51 Encounter for screening for human papillomavirus (HPV); N93.9 Abnormal uterine and vaginal bleeding, unspecified; N83.299 Other ovarian cyst, unspecified side
CPT/HCPCS: 36415; 86304; 87491; 87591; 87624; 87625; 88142; 99202

== ENCOUNTER 2021-05-03 14:08 | Outpatient (REF) | payer OTHER, SELFPAY | END 2021-05-03 14:09 | disposition home or self-care (01) | LOC: HO.LAB 14:08 | PROVIDERS: PCP Family Medicine; Visit Provider Obstetrics & Gynecology | DX: N93.9 Abnormal uterine and vaginal bleeding, unspecified (principal); N87.0 Mild cervical dysplasia | CPT/HCPCS: 57454; 58100; 81025; 88305 ==

== ENCOUNTER 2021-05-16 20:10 | Emergency (ER) | payer OTHER, SELFPAY ==
[2021-05-16 21:37] VITALS: BP 120/69; PULSE 89; RESP 18; TEMP 37.7; O2SAT 99; BMI 28.4
[2021-05-16 22:49] LABS: COVID-19 Test Positive (Negative)
--- NOTE | 2021-05-17 00:07 | ED_ITS ---
HPI - URI/Sore Throat General Chief Complaint: Upper Respiratory Symptoms Stated Complaint: fever body aches and hx of asthma Time Seen by Provider: 05/17/21 00:06 Source: patient Mode of arrival: ambulatory Limitations: no limitations History of Present Illness HPI Narrative: 46-year-old female with history of PCOS, obesity, hypothyroidism, ovarian cyst who presents to the ER with fever, cough, chills, headaches and body aches. She is fully vaccinated for COVID-19 however her significant other tested positive for COVID today. She denies any shortness of breath or dyspnea on exertion. She has had no chest pain. She is eating and drinking normally. MD elicited complaint: fever, cough and other (Body aches) Consistency: intermittent Severity: moderate Description of mucous: clear Able to tolerate fluids by mouth: Yes Exacerbating factors: nothing Relieving factors: nothing Context: sick contacts Associated symptoms: fever, chills, myalgias, diaphoresis, headache, nasal con gestion and cough Treatments prior to arrival: none Related Data Home Medications Medication Instructions Recorded Confirmed buspirone 15 mg tablet 15 mg PO BID 07/06/20 03/06/21 cyanocobalamin (vitamin B-12) 1,000 mcg PO DAILY 07/06/20 03/06/21 1,000 mcg tablet docusate sodium 100 mg capsule 100 mg PO BID 07/06/20 03/06/21 risperidone 2 mg tablet 2 mg PO QAM 07/06/20 03/06/21 risperidone 4 mg tablet 4 mg PO BEDTIME 07/06/20 03/06/21 topiramate 50 mg tablet 50 mg PO DAILY 07/06/20 03/06/21 trazodone 50 mg tablet [id number] mg PO BEDTIME PRN 07/06/20 03/06/21 venlafaxine 150 mg 150 mg PO DAILY 07/06/20 03/06/21 capsule,extended release 24 hr cetirizine 10 mg tablet 10 mg PO DAILY PRN 11/24/20 03/06/21 fluticasone propionate 220 1 puff INHALATION BID 12/19/20 03/06/21 mcg/actuation HFA aerosol inhaler (Flovent HFA) norethindrone (contraceptive) 0.35 0.35 mg PO DAILY 12/19/20 03/06/21 mg tablet bupropion HCl 150 mg tablet,12 hr 250 mg PO DAILY tab 03/06/21 03/06/21 sustained-release Previous Rx's Medication Instructions Recorded finasteride 5 mg tablet 5 mg PO DAILY 90 Days #90 tab 11/24/20 levothyroxine 112 mcg tablet 112 mcg PO DAILY 90 Days #90 tab NS 11/24/20 metformin 500 mg tablet,extended 500 mg PO BEDTIME 90 Days #90 tab 11/24/20 release 24 hr spironolactone 25 mg tablet 25 mg PO BID 30 Days #60 tab 11/30/20 dexamethasone 1 mg tablet 1 mg PO DAILY #1 tab 03/06/21 pravastatin 20 mg tablet 20 mg PO DAILY 90 Days #90 tab 03/13/21 benzonatate 100 mg capsule 100 mg PO TID PRN #30 cap 05/17/21 Allergies Allergy/AdvReac Type Severity Reaction Status Date / Time No Known Allergies Allergy Verified 03/06/21 15:18 seasonal allergies Allergy Unknown Nasal Uncoded 03/06/21 15:18 congestion Review of Systems Review of Systems: Constitutional: + Fever, + Chills ENT/Mouth: No sore throat, No Rhinorrhea, No Swallowing Difficulty Cardiovascular: No Chest Pain, + SOB, No Orthopnea, No Edema Respiratory: + Cough, No Sputum, No Wheezing, No dyspnea Gastrointestinal: No Nausea, No Vomiting, No Diarrhea, No abdominal Pain Musculoskeletal: No joint pain, No Myalgias Skin: No Skin Lesions, No rash Neuro: No Weakness, No Numbness, No Dizziness,+ Headache Heme/Lymph: No Bruising, No Lymphadenopathy PMFSH Past Medical History Medical History Bipolar disorder Dyslipidemia Hyperandrogenism Hypothyroidism Obesity (BMI 30-39.9) Ovarian cyst PCOS (polycystic ovarian syndrome) Thyroid nodule Vitamin D deficiency Surgical History History of surgical removal of skin lesion Family History Family History Father No problems noted. Mother No problems noted. Maternal Grandmother Diabetes mellitus Social History Social History Household Members: Children Household Members Other:: daughter Alcohol intake: never Patient Tobacco Use Status: Former Tobacco user Advance Directives: No Advance Directives Information Provided: No Physical Exam Vital Signs: Vital Signs: Last Vital Signs Temp 99.9 F 05/16/21 21:37 Pulse 89 05/16/21 21:37 Resp 18 05/16/21 21:37 BP 120/69 05/16/21 21:37 Pulse Ox 99 05/16/21 21:37 BMI result Body Mass Index 28.4 Appearance: Alert. Oriented X3. No acute distress. Eyes: Pupils equal, round and reactive to light. ENT: Pharynx normal. Moist mucus membranes, normal tonsils. Clear nasal discharge Neck: Normal inspection. Neck supple. No LAD CVS: Normal heart rate and rhythm. Pulses normal. Respiratory: No respiratory distress. Breath sounds normal. Dry cough Skin: Skin warm and dry. Normal skin color. Normal skin turgor. No rashes. Extremities: Normal inspection, normal ROM Neuro: Oriented X 3. Grossly normal, nonfocal Course Course Course Narrative: 46-year-old female presents to the ER with COVID symptoms after known exposure. She is vaccinated. Her vital signs are normal in her lungs are clear. No respiratory distress. She has a dry cough. No adventitious lung sounds. Her COVID rapid antigen test today was positive. Patient counseled on diagnosis and management. Strict return precautions were discussed. She has a history of asthma but is intermittent and well controlled. Stable for discharge home with supportive care. Work note provided per request. MDM - URI/Sore Throat Lab Data Labs: Lab Results 05/16/21 Range/Units 21:50 COVID-19 ([facility]) Positive A (Negative) COVID-19 Clin Com See Note Discharge Plan Discharge Clinical Impression: COVID-19 Patient Disposition: Home, Self-Care Instructions: Covid-19 Viral Syndrome and Novel Coronavirus (ED) Hey/Ath Additional Instructions: You were found to be COVID-19 POSITIVE today. Your exam x-ray and oxygen levels were normal. Rest. Drink plenty of fluids. Do not go out in public for the next 7 days. Take over the counter cold/flu medications as needed for your symptoms. Take Tylenol and/or Motrin as needed for fevers and body aches. Follow up with your doctor this week. If you shortness of breath worsens, if you develop difficulty breathing or any other concerning symptom come back to the ER for further evaluation. Prescriptions: New benzonatate 100 mg capsule 100 mg PO TID PRN (Reason: cough) Qty: 30 RF: 0 No Action levothyroxine 112 mcg tablet 112 mcg PO DAILY 90 Days Qty: 90 RF: 3 spironolactone 25 mg tablet 25 mg PO BID 30 Days Qty: 60 RF: 5 pravastatin 20 mg tablet 20 mg PO DAILY 90 Days Qty: 90 RF: 1 cetirizine 10 mg tablet 10 mg PO DAILY PRN (Reason: allergies) RF: 0 finasteride 5 mg tablet 5 mg PO DAILY 90 Days Qty: 90 RF: 2 metformin 500 mg tablet extended release 24 hr 500 mg PO BEDTIME 90 Days Qty: 90 RF: 1 docusate sodium 100 mg capsule 100 mg PO BID RF: 0 risperidone 2 mg tablet 2 mg PO QAM RF: 0 risperidone 4 mg tablet 4 mg PO BEDTIME RF: 0 cyanocobalamin (vitamin B-12) 1,000 mcg tablet 1,000 mcg PO DAILY RF: 0 topiramate 50 mg tablet 50 mg PO DAILY RF: 0 buspirone 15 mg tablet 15 mg PO BID RF: 0 venlafaxine 150 mg capsule,extended release 24hr 150 mg PO DAILY RF: 0 trazodone 50 mg tablet [id number] mg PO BEDTIME PRNRF: 0 bupropion HCl 150 mg tablet sustained-release 12 hr 250 mg PO DAILY RF: 0 Flovent HFA 220 mcg/actuation HFA aerosol inhaler 1 puff inhalation BID RF: 0 norethindrone (contraceptive) 0.35 mg tablet 0.35 mg PO DAILY RF: 0 dexamethasone 1 mg tablet 1 mg PO DAILY Qty: 1 RF: 0 Stand Alone Forms: Work/School Release
== END 2021-05-17 00:24 | disposition home or self-care (01) ==
PROVIDERS: Emergency Provider Emergency Medicine Emergency Medical Services; PCP Family Medicine
DX: U07.1 COVID-19 (principal); R50.9 Fever, unspecified
CPT/HCPCS: 87635; 99282; 99283

== ENCOUNTER → 2021-05-25 08:48 | Outpatient (BNVA) | payer OTHER, SELFPAY | PROVIDERS: Visit Provider Obstetrics & Gynecology | DX: N87.0 Mild cervical dysplasia (principal); N93.9 Abnormal uterine and vaginal bleeding, unspecified; N83.299 Other ovarian cyst, unspecified side | CPT/HCPCS: Q3014 ==

== ENCOUNTER → 2021-06-07 11:52 | Outpatient (BNVA) | payer OTHER, SELFPAY | PROVIDERS: Visit Provider Obstetrics & Gynecology | DX: N93.9 Abnormal uterine and vaginal bleeding, unspecified (principal) | CPT/HCPCS: 99212 ==

== ENCOUNTER 2021-06-29 07:00 | Day surgery (SDC) | payer OTHER, SELFPAY ==
--- NOTE | 2021-06-28 10:53 | P.CONAN_ITS ---
Documented by User: Alejandra Marshall NP 06/28/21 10:54 HPI - Anesthesia Eval Consult details Narrative: 46yo F for D&C Hysteroscopy, Possible Polypectomy, Possible Myomectomy PMFSH Active Problems Active Problems: All Active Problems (Updated 06/23/21 @ 09:57 by Roz Harding RN) Abnormal uterine bleeding (AUB) (Acute) Well woman exam (Acute) Complex ovarian cyst (Acute) COVID-19 (Acute) Dysplasia of cervix, low grade (KRUPA 1) (Acute) Ovarian cyst (Acute) Hyperandrogenism (Acute) Dyslipidemia (Acute) Vitamin D deficiency (Acute) Obesity (BMI 30-39.9) (Acute) Thyroid nodule (Acute) Hypothyroidism (Acute) PCOS (polycystic ovarian syndrome) (Acute) Past Medical History Medical History Anxiety and depression Asthma Bipolar disorder Dyslipidemia Hyperandrogenism Hypothyroidism Obesity (BMI 30-39.9) Ovarian cyst PCOS (polycystic ovarian syndrome) Sterilization Thyroid nodule Vitamin D deficiency Family History Family History Father No problems noted. Mother No problems noted. Maternal Grandmother Diabetes mellitus Surgical History Surgical History History of endometrial ablation History of lithotripsy History of surgical removal of skin lesion Hx of cholecystectomy Social History Social History Household Members: Children Household Members Other:: daughter Alcohol intake: never Patient Tobacco Use Status: Former Tobacco user Use of substances other than those prescribed or required for medical reasons: No Are you DNR?: No Advance Directives: No Advance Directives Information Provided: Yes Meds Allergies Allergy/AdvReac Type Severity Reaction Status Date / Time seasonal allergies Allergy Unknown Nasal Uncoded 06/23/21 09:59 congestion Home Medications Medication Instructions Recorded Confirmed Last Taken Type buspirone 15 mg tablet 15 mg PO BID 07/06/20 06/23/21 Unknown History cyanocobalamin (vitamin B-12) 1,000 mcg PO DAILY 07/06/20 06/23/21 Unknown History 1,000 mcg tablet docusate sodium 100 mg capsule 100 mg PO BID 07/06/20 06/23/21 Unknown History risperidone 2 mg tablet 2 mg PO QAM 07/06/20 06/23/21 Unknown History risperidone 4 mg tablet 4 mg PO BEDTIME 07/06/20 06/23/21 Unknown History topiramate 50 mg tablet 50 mg PO DAILY 07/06/20 06/23/21 Unknown History trazodone 50 mg tablet [id number] mg PO BEDTIME PRN 07/06/20 06/23/21 Unknown History venlafaxine 150 mg 150 mg PO DAILY 07/06/20 06/23/21 Unknown History capsule,extended release 24 hr cetirizine 10 mg tablet 10 mg PO DAILY PRN 11/24/20 06/23/21 Unknown History fluticasone propionate 220 1 puff INHALATION BID 12/19/20 06/23/21 Unknown History mcg/actuation HFA aerosol inhaler (Flovent HFA) norethindrone (contraceptive) 0.35 0.35 mg PO DAILY 12/19/20 06/23/21 Unknown History mg tablet bupropion HCl 150 mg tablet,12 hr 250 mg PO DAILY tab 03/06/21 06/23/21 Unknown History sustained-release albuterol sulfate 3 ml INHALATION QID PRN 06/23/21 06/23/21 Unknown History albuterol sulfate 90 mcg/actuation 2 puff PO Q4-6H PRN 06/23/21 06/23/21 Unknown History aerosol inhaler fluticasone propionate 50 1 spray INTRANASAL BID PRN 06/23/21 06/23/21 Unknown History mcg/actuation nasal spray,suspension Exam Exam Date and Time: June 28, 2021 1053 Assessment and Plan Assessment Anesthesia Assessment: Chart Reviewed Documented by User: Sigrid Quezada MD 06/29/21 09:40 [facility] Past Medical History Medical History Anxiety and depression Asthma Bipolar disorder Dyslipidemia Hyperandrogenism Hypothyroidism Obesity (BMI 30-39.9) Ovarian cyst PCOS (polycystic ovarian syndrome) Sterilization Thyroid nodule Vitamin D deficiency Family History Family History Father No problems noted. Mother No problems noted. Maternal Grandmother Diabetes mellitus Surgical History Surgical History History of endometrial ablation History of lithotripsy History of surgical removal of skin lesion Hx of cholecystectomy History of Problems with Anesthesia: No Social History Social History Household Members: Children Household Members Other:: daughter Alcohol intake: never Patient Tobacco Use Status: Former Tobacco user Use of substances other than those prescribed or required for medical reasons: No Are you DNR?: No Advance Directives: No Advance Directives Information Provided: Yes Meds Allergies Allergy/AdvReac Type Severity Reaction Status Date / Time seasonal allergies Allergy Unknown Nasal Uncoded 06/23/21 09:59 congestion Home Medications Medication Instructions Recorded Confirmed Last Taken Type buspirone 15 mg tablet 15 mg PO BID 07/06/20 06/23/21 Unknown History cyanocobalamin (vitamin B-12) 1,000 mcg PO DAILY 07/06/20 06/23/21 Unknown History 1,000 mcg tablet docusate sodium 100 mg capsule 100 mg PO BID 07/06/20 06/23/21 Unknown History risperidone 2 mg tablet 2 mg PO QAM 07/06/20 06/23/21 Unknown History risperidone 4 mg tablet 4 mg PO BEDTIME 07/06/20 06/23/21 Unknown History topiramate 50 mg tablet 50 mg PO DAILY 07/06/20 06/23/21 Unknown History trazodone 50 mg tablet [id number] mg PO BEDTIME PRN 07/06/20 06/23/21 Unknown History venlafaxine 150 mg 150 mg PO DAILY 07/06/20 06/23/21 Unknown History capsule,extended release 24 hr cetirizine 10 mg tablet 10 mg PO DAILY PRN 11/24/20 06/23/21 Unknown History fluticasone propionate 220 1 puff INHALATION BID 12/19/20 06/23/21 Unknown History mcg/actuation HFA aerosol inhaler (Flovent HFA) norethindrone (contraceptive) 0.35 0.35 mg PO DAILY 12/19/20 06/23/21 Unknown History mg tablet bupropion HCl 150 mg tablet,12 hr 250 mg PO DAILY tab 03/06/21 06/23/21 Unknown History sustained-release albuterol sulfate 3 ml INHALATION QID PRN 06/23/21 06/23/21 Unknown History albuterol sulfate 90 mcg/actuation 2 puff PO Q4-6H PRN 06/23/21 06/23/21 Unknown History aerosol inhaler fluticasone propionate 50 1 spray INTRANASAL BID PRN 06/23/21 06/23/21 Unknown History mcg/actuation nasal spray,suspension Exam Airway Mallampati Class: II TM Dist: >3cm Neck ROM: Full Loose/Missing/Broken Teeth: No Heart: RRR Lungs: CTA Assessment and Plan Assessment Anesthesia Assessment: Anesthesia Plan Discussed Final Anesthetic Review History of Problems with Anesthesia: No NPO: Yes ASA Class: II Final Preanesthetic Review: Meds/Allgs Chart Reviewed, Consent Obtained/Reviewed and Anes Risks/Benef Reviewed Patient Risk: Low Procedure Risk: Low Anesthetic Plan Anesthetic Plan: GA Disposition: Standard PACU
[2021-06-29] VITALS (9 sets, daily range): BP systolic 123–154; BP diastolic 51–78; PULSE 66–71; RESP 17–20; TEMP 36.2–36.7; O2SAT 95–100; BMI 28.8
[2021-06-29 07:26] LABS: UPreg QC Valid YES; Urine Pregnancy NEGATIVE (NEGATIVE)
[2021-06-29] MEDS: Lactated Ringers 1,000 ML 100 ML IVCONT (07:59)
--- NOTE | 2021-06-29 09:02 | MHC.SHP ---
Pre-Procedural Eval Section A Date of Service: 06/29/21 The patient is an INPATIENT: No Changes since office visit: No Cold of Flu in the past 2 weeks, No New Medical Problems, No Changes in Medication and No Patient answered all questions The History & Physical has been completed within 30 days and I have reviewed it.: Yes Section B Chief Complaint: AUB Allergies: Allergies Allergy/AdvReac Type Severity Reaction Status Date / Time seasonal allergies Allergy Unknown Nasal Uncoded 06/23/21 09:59 congestion Plan Diagnosis/Plan: Unchanged I have reviewed the history and physical and performed a pertinent physical examination on my patient. No changes have occurred unless specified.
--- NOTE | 2021-06-29 10:01 | PM.OP ---
Brief Operative Note Date of Service: 06/29/21 Pre-op diagnosis: Abnormal uterine bleeding Post-op diagnosis: same (With extensive endometrial cavity adhesions secondary to previous endometrial ablation) Procedure: Hysteroscopy D&C Surgeon: Aris Abrams MD Anesthesia: MAC Was an Senior Php Software Developer used for this Procedure?: No Estimated blood loss (mL): 0 Pathology: other (Endometrial Scrapping) Condition: stable Disposition: PACU
--- NOTE | 2021-06-29 10:02 | P.OP_ITS ---
Operative Note Operative Note Date of Service: 06/29/21 Narrative: Preop Diagnosis: Abnormal uterine bleeding Operation: Diagnostic Hysteroscopy, Dilatation & Curettage Post Op Diagnosis: Extensive endometrial cavity adhesions secondary to previous endometrial ablation QBL: Minimal Anesthesia: MAC Surgeon: Aris Abrams MD Freight Brake Operator: None Complication: None Pathology: Endometrial Scrapings Procedure: The patient was put in the dorsal lithotomy position, scrubbed, and draped in the usual manner. A sterile speculum was inserted in the patient's vagina. The anterior lip of the cervix was grasped with a single tooth tenaculum. The cervix was dilated up t o 5 mm, then the scope was inserted in the patient's uterus. Inspection revealed extensive endometrial cavity adhesions secondary to previous endometrial ablation The scope was taken out of the uterine cavity , then sharp curetting was carried on with minimal amount of endometrial tissues retrieved and no complications. At the end of the procedure, all instruments were taken out of the patient uterine and vaginal cavity. The single tooth tenaculum was removed and homeostasis was assured using pressure. The patient tolerated the procedure well and was transferred to the PACU in a stable condition.
[2021-06-29] MEDS: oxyCODONE HCl Immed Release 5 MG TABLET PO (10:24)
[2021-06-29] MEDS: Acetaminophen 325 MG TABLET 650 MG PO (10:24)
[2021-06-29] MEDS: fentaNYL citrate/PF 100 MCG/2 ML VIAL 25 MCG IVPUSH ×2 (10:24→10:32)
== END 2021-06-29 11:14 | disposition home or self-care (01) ==
PROVIDERS: PCP Family Medicine; Visit Provider Obstetrics & Gynecology
PROC: 0UDB8ZZ Extraction of Endometrium, Via Natural or Artificial Opening Endoscopic (ICD-10-PCS; CPT 58558; principal; 2021-06-29 08:50)
DX: N93.9 Abnormal uterine and vaginal bleeding, unspecified (principal); N73.6 Female pelvic peritoneal adhesions (postinfective); E28.1 Androgen excess; E28.2 Polycystic ovarian syndrome; N97.9 Female infertility, unspecified; E78.5 Hyperlipidemia, unspecified; E03.9 Hypothyroidism, unspecified; E55.9 Vitamin D deficiency, unspecified; F31.9 Bipolar disorder, unspecified
CPT/HCPCS: 58558; 81025; 88305; J1100; J2250; J2405; J3010

== ENCOUNTER 2021-07-01 08:37 | Outpatient (REF) | payer OTHER, SELFPAY ==
[2021-07-01 10:13] LABS: Free T4 (Free Thyroxine) 1.17 ng/dL (0.71-1.85); Thyroid Stimulating Hormone 0.33 uIU/mL (0.32-4.0); Vitamin D 25-OH Total 54.7 ng/mL (>30)
[2021-07-02 04:21] LABS: Sex Hormone Binding Globulin 98 nmol/L (17-124)
[2021-07-08 14:22] LABS: Testosterone, Free 11.3 pg/mL (0.1-6.4); Testosterone, Total 164 ng/dL (2-45)
== END 2021-07-01 08:38 | disposition home or self-care (01) ==
LOC: HO.LAB 08:37
PROVIDERS: PCP Family Medicine; Visit Provider Internal Medicine
DX: E28.8 Other ovarian dysfunction (principal); E89.0 Postprocedural hypothyroidism; E55.9 Vitamin D deficiency, unspecified
CPT/HCPCS: 36415; 82306; 84270; 84402; 84403; 84439; 84443

== ENCOUNTER → 2021-07-05 08:36 | Outpatient (BNVA) | payer OTHER, SELFPAY | PROVIDERS: PCP Family Medicine; Visit Provider Internal Medicine Endocrinology, Diabetes & Metabolism | DX: E28.2 Polycystic ovarian syndrome (principal); E04.1 Nontoxic single thyroid nodule; E89.0 Postprocedural hypothyroidism | CPT/HCPCS: 99212 ==

== ENCOUNTER → 2021-07-13 12:04 | Outpatient (BNVA) | payer OTHER, SELFPAY | PROVIDERS: Visit Provider Obstetrics & Gynecology | DX: N93.9 Abnormal uterine and vaginal bleeding, unspecified (principal) | CPT/HCPCS: Q3014 ==

== ENCOUNTER 2021-07-17 10:40 | Outpatient (REF) | payer OTHER, SELFPAY ==
--- NOTE | ~2021-07-17 | US_ITS ---
EXAMINATION: US PELVIS CLINICAL INFORMATION: Ovarian cyst COMPARISON: Pelvic ultrasound 03/29/2021, pelvic MRI 09/13/2016. TECHNIQUE: Ultrasound of the pelvis is performed using both transabdominal and transvaginal transducers along with Doppler. Transvaginal imaging is performed due to inadequate visualization transabdominally. FINDINGS: Uterus: The uterus is anteverted and measures 8.1 x 5.1 x 5.2 cm. The double wall endometrial thickness is 0.3 mm. The uterus is smooth in contour and has normal myometrial echogenicity. No visible fibroid. There are nabothian cysts. Adnexa: Both ovaries are visualized. There is normal color flow to the adnexa. There is no ovarian torsion. There is no pelvic ascites or fluid collection. Right ovary measures 3.9 x 2.4 x 2.9 cm., 14.2 mL multiple follicles are seen. Left ovary measures 3.2 x 2.9 x 2.9 cm, 14.2 mL.. There is a complex lesion in the left ovary measuring 2.5 x 2.2 x 2.3 cm. This does not have discernible internal vascularity but does not have sonographic features of a simple cyst. This has enlarged compared to 1.6 x 1.5 x 0.8 cm on the prior ultrasound. US/US pelvic and transvaginal IMPRESSION: Complex lesion in the left ovary measures 2.5 cm, enlarged from 1.6 cm. Recommend MRI of the pelvis without and with contrast for further evaluation. Enlarged ovaries consistent with polycystic ovaries seen on prior ultrasounds and MRI.
== END 2021-07-17 10:41 | disposition home or self-care (01) ==
LOC: HO.US 10:40
PROVIDERS: PCP Family Medicine; Visit Provider Obstetrics & Gynecology
DX: N83.299 Other ovarian cyst, unspecified side (principal); N83.8 Other noninflammatory disorders of ovary, fallopian tube and broad ligament
CPT/HCPCS: 76830; 76856

== ENCOUNTER → 2021-07-26 11:04 | Outpatient (BNVA) | payer OTHER, SELFPAY | PROVIDERS: Visit Provider Obstetrics & Gynecology | DX: N83.299 Other ovarian cyst, unspecified side (principal) | CPT/HCPCS: Q3014 ==

== ENCOUNTER 2021-09-04 15:35 | Outpatient (REF) | payer OTHER, SELFPAY ==
--- NOTE | ~2021-09-04 | MR_ITS ---
EXAMINATION: MRI PELVIS WITH AND WITHOUT CONTRAST CLINICAL INFORMATION: Other ovarian cyst COMPARISON: Ultrasound 07/27/2020. Prior MRI 09/13/2016 TECHNIQUE: Multiple routine MRI sequences through the pelvis were obtained on a high-field 1.5 [place] MRI before and after the uneventful administration of 8.5 mL of Gadavist gadolinium-based IV contrast. FINDINGS: UTERUS: Anteverted uterus has a normal configuration and measures 8.9 x 5.1 x 6.5 cm ([id number] x anterior-posterior x transverse). Normal endometrial thickness, 0.4 cm. Junctional zone is normal in signal and thickness. No focal uterine mass seen. CERVIX: Normal. VAGINA: Normal; no mass seen. RIGHT OVARY: The right ovary remains prominent, measuring 4.0 x 2.6 x 3.0 cm. There is a round T1 and T2 dark structure centrally measuring 2.6 cm with peripheral T2 bright physiologic follicular cysts. The appearance is similar to the prior MRI 09/13/2016 which also had a central T1 and T2 dark structure. No bright T1 signal to suggest endometrioma or hemorrhagic cyst. LEFT OVARY: The left ovary is prominent as well, measuring 4.1 x 2.7 x 3.6 cm. Within the left ovary there is a 2.3 cm T1 and T2 dark relatively hypoenhancing mass that was present previously in 2017 as well. There are surrounding small physiologic T2 hyperintense follicular cysts. No bright T1 signal to suggest endometrioma or hemorrhagic cyst. KIDNEYS: Two normally positioned kidneys are seen. No hydronephrosis. BLADDER: Urinary bladder normal. PELVIC FREE FLUID: No free fluid or ascites. LYMPH NODES: No pathologically enlarged lymph nodes. OSSEOUS STRUCTURES: Degenerative changes of the bilateral sacroiliac joints. No acute or suspicious osseous abnormality. MR/MR pelvis wo/w con IMPRESSION: Both ovaries remain prominent, similar in appearance to the prior MRI 09/13/2016 and, given limitations from differences in technique, not convincingly changed from the noncontrast CT scan 03/28/2009. Within both ovaries there is a well-circumscribed T1 and T2 dark structure suggesting bilateral ovarian fibromas (O-RADS 2). The lack of interval change since 2017 is highly reassuring of a benign process.
== END 2021-09-04 15:36 | disposition home or self-care (01) ==
LOC: HO.MRI 15:35
PROVIDERS: Visit Provider Obstetrics & Gynecology
DX: N83.299 Other ovarian cyst, unspecified side (principal)
CPT/HCPCS: 72197; A9585

== ENCOUNTER → 2021-10-11 11:52 | Outpatient (BNVA) | payer OTHER, SELFPAY | PROVIDERS: PCP Family Medicine; Visit Provider Nurse Practitioner Family | DX: Z12.11 Encounter for screening for malignant neoplasm of colon (principal) | CPT/HCPCS: 99202 ==

== ENCOUNTER 2021-10-23 13:54 | Outpatient (REF) | payer OTHER, SELFPAY ==
[2021-10-30 11:22] LABS: CA 125 New Method 8 U/mL (<35); CA-125 10 U/mL (<35)
== END 2021-10-23 13:55 | disposition home or self-care (01) ==
LOC: HO.LAB 13:54
PROVIDERS: PCP Family Medicine; Visit Provider Obstetrics & Gynecology
DX: N83.299 Other ovarian cyst, unspecified side (principal)
CPT/HCPCS: 36415; 86304; 99212

== ENCOUNTER 2021-12-08 15:12 | Outpatient (REF) | payer OTHER, SELFPAY ==
--- NOTE | ~2021-12-08 | US_ITS ---
EXAMINATION: US THYROID CLINICAL INFORMATION: Nontoxic multinodular goiter. COMPARISON: Ultrasound soft tissue head/neck thyroid dated 06/20/2020 and 11/10/2019. TECHNIQUE: Linear transducer grayscale and color Doppler examination with attention to the region of the thyroid. FINDINGS: SIZE: Measurements of the thyroid lobes and nodules are given in sagittal, anteroposterior and transverse dimensions respectively. Right Thyroid Lobe: 4.0 x 1.4 x 1.6 cm, volume 4.5 mL. Previously 2.9 x 1.4 x 1.4 cm, volume 3.1 mL. Parenchyma: The gland echotexture is homogeneous. Thyroid vascularity is normal. Left Thyroid Lobe: 2.5 x 0.9 x 1.3 cm, volume 1.6 mL. Previously 2.0 x 0.9 x 1.0 cm, volume 0.9 mL. Parenchyma: The gland echotexture is homogeneous. Thyroid vascularity is normal. Isthmus: 0.2 cm in maximum AP dimension. Previously 0.3 cm. Estimated total number of nodules greater than or equal to 1 cm: 1. [employer] nodules are described as follows: 1. Location: Right mid. Size: 1.3 x 1.5 x 1.2 cm, volume 1.3 mL. Previously: 1.6 x 1.3 x 1.1 cm, volume 1.1 mL. Nodule characteristics: Composition: Solid (2). Echogenicity: Isoechoic (1). Shape: Taller than wide (3). Margins: Smooth (0). Echogenic Foci: None (0). ACR TI-RADS total points: 6 Previous: 3 ACR TI-RADS category: 4 Previous: 3 Significant change in size (>/= 20% in 2 dimensions and minimal increase of 2 mm or 50% or greater increase in volume): No Change in features: Yes, the nodule is now slightly taller than wide. On recent prior the nodule was as tall as wide however in 2021 nodule appear to be taller than wide. Change in ACR TI-RADS risk category: Yes NODES: No lymphadenopathy is seen in the tissue surrounding the thyroid gland. US/US thyroid IMPRESSION: A 1.5 cm right mid thyroid nodule is not significantly changed in size. This nodule appears taller than wide on today's exam, TI RADS 4, which is similar to 2020 however the measurements on the most recent prior were as tall as wide (TI RADS 3). This nodule meets criteria for tissue sampling and was previously sampled in 2019. Recommend correlation with prior pathology. ACR TI-RADS RECOMMENDATION REFERENCE: Ultrasound-guided fine-needle aspiration, followup ultrasound, no further follow up. * TR1 (0 point) and TR 2 (2 points): No FNA or follow up * TR3 (3 points): FNA if more than or equal to 2.5 cm in maximum dimension, followup ultrasound in 1, 3 and 5 years if 1.5 to 2.4 cm in maximum dimension. * TR4 (4-6 points): FNA if more than or equal to 1.5 cm in maximum dimension, followup ultrasound in 1, 2, 3 and 5 years if 1 to 1.4 cm in maximum dimension. * TR5 (more than or equal to 7 points): FNA if more than or equal to 1 cm in maximum dimension, followup ultrasound every year for 5 years if 0.5 to 0.9 cm in maximum dimension. * TR3, TR4 or TR5 nodules that are below the size threshold for follow up receive no follow up.
== END 2021-12-08 15:13 | disposition home or self-care (01) ==
LOC: HO.US 15:12
PROVIDERS: Visit Provider Internal Medicine Endocrinology, Diabetes & Metabolism
DX: E04.2 Nontoxic multinodular goiter (principal)
CPT/HCPCS: 76536

== ENCOUNTER 2022-02-14 10:03 | Day surgery (SDC) | payer OTHER, SELFPAY ==
[2022-02-14 10:16] VITALS: BMI 27.4
[2022-02-14 10:22] VITALS: BP 106/52; PULSE 65; RESP 16; TEMP 36.4; O2SAT 100
[2022-02-14] MEDS: Lactated Ringers 1,000 ML 50 ML IVCONT (10:37)
--- NOTE | 2022-02-14 10:51 | HO.ANESPROP2 ---
[facility] Active Problems Active Problems: All Active Problems (Updated 10/23/21 @ 13:56 by Aris Abrams MD) Abnormal uterine bleeding (AUB) (Acute) Well woman exam (Acute) Complex ovarian cyst (Acute) COVID-19 (Acute) Dysplasia of cervix, low grade (KRUPA 1) (Acute) Ovarian cyst (Acute) Hyperandrogenism (Acute) Dyslipidemia (Acute) Vitamin D deficiency (Acute) Obesity (BMI 30-39.9) (Acute) Thyroid nodule (Acute) Hypothyroidism (Acute) PCOS (polycystic ovarian syndrome) (Acute) Past Medical History Medical History Anxiety and depression Asthma Bipolar disorder Dyslipidemia Hyperandrogenism Hypothyroidism Obesity (BMI 30-39.9) Ovarian cyst PCOS (polycystic ovarian syndrome) Sterilization Thyroid nodule Vitamin D deficiency Family History Family History Father No problems noted. Mother Thyroid disease Maternal Grandmother Diabetes mellitus Family history of problems with anesthesia: No Surgical History Surgical History History of endometrial ablation History of lithotripsy History of surgical removal of skin lesion Hx of cholecystectomy History of Problems with Anesthesia: No Social History Social History Household Members: Children Household Members Other:: daughter Alcohol intake: never Patient Tobacco Use Status: Former Tobacco user Use of substances other than those prescribed or required for medical reasons: No Are you DNR?: No Advance Directives: No Advance Directives Information Provided: Yes Meds Allergies Allergy/AdvReac Type Severity Reaction Status Date / Time seasonal allergies Allergy Unknown Nasal Uncoded 10/11/21 11:59 congestion Home Medications Medication Instructions Recorded Confirmed Last Taken Type buspirone 15 mg tablet 15 mg PO BID 07/06/20 07/05/21 Unknown History cyanocobalamin (vitamin B-12) 1,000 mcg PO DAILY 07/06/20 07/05/21 Unknown History 1,000 mcg tablet docusate sodium 100 mg capsule 100 mg PO BID 07/06/20 07/05/21 Unknown History risperidone 2 mg tablet 2 mg PO QAM 07/06/20 07/05/21 Unknown History risperidone 4 mg tablet 4 mg PO BEDTIME 07/06/20 07/05/21 Unknown History topiramate 50 mg tablet 50 mg PO DAILY 07/06/20 07/05/21 Unknown History trazodone 50 mg tablet [id number] mg PO BEDTIME PRN Sleep 07/06/20 07/05/21 Unknown History venlafaxine 150 mg 150 mg PO DAILY 07/06/20 07/05/21 Unknown History capsule,extended release 24 hr cetirizine 10 mg tablet 10 mg PO DAILY PRN allergies 11/24/20 07/05/21 Unknown History fluticasone propionate 220 1 puff inhalation BID 12/19/20 07/05/21 Unknown History mcg/actuation HFA aerosol inhaler (Flovent HFA) norethindrone (contraceptive) 0.35 0.35 mg PO DAILY 12/19/20 07/05/21 Unknown History mg tablet bupropion HCl 150 mg tablet,12 hr 250 mg PO DAILY 03/06/21 07/05/21 Unknown History sustained-release albuterol sulfate 2.5 mg/3 mL 3 ml inhalation QID PRN Wheezing 06/23/21 07/05/21 Unknown History (0.083 %) solution for nebulization albuterol sulfate 90 mcg/actuation 2 puff PO Q4-6H PRN Wheezing 06/23/21 07/05/21 Unknown History aerosol inhaler fluticasone propionate 50 1 spray intranasal BID PRN 06/23/21 07/05/21 Unknown History mcg/actuation nasal allergies spray,suspension venlafaxine 37.5 mg 37.5 mg PO DAILY 10/11/21 Unknown History capsule,extended release 24 hr Exam Exam Date and Time: February 14, 2022 1051 Height,Weight and Vital Signs: Height 5 ft 6 in Weight 77.111 kg Last Vital Signs Temp 97.5 F 02/14/22 10: Pulse 65 02/14/22 10:22 Resp 16 02/14/22 10:22 BP 106/52 L 02/14/22 10:22 Pulse Ox 100 02/14/22 10:22 O2 Del Method 02/14/22 10:22 Airway Mallampati Class: II TM Dist: >3cm Neck ROM: Full Heart: rrr Lungs: cta Assessment and Plan Assessment Anesthesia Assessment: Anesthesia Plan Discussed and Chart Reviewed Final Anesthetic Review Family History of Problems with Anesthesia: No History of Problems with Anesthesia: No NPO: Yes ASA Class: II Final Preanesthetic Review: No Changes in Pt Med Stat, Meds/Allgs Chart Reviewed and Consent Obtained/Reviewed Patient Risk: Intermediate Procedure Risk: Intermediate Anesthetic Plan Anesthetic Plan: MAC: Disposition: Standard PACU
--- NOTE | 2022-02-14 11:27 | MHC.SHP ---
Pre-Procedural Eval Section A Date of Service: 02/14/22 Section B Chief Complaint: screening Details of Present Illness: 46y.o F at average risk for colon cancer, here for screening colonoscopy. Relevant Family History (Specify if Yes): No Relevant Social History: None Present Medications: see Short Stay Collaborative assessment Medical History: No relevant PMH History of Previous Operations: Relevant previous surgery/procedure and date(s) (cholecystectomy ) Allergies: Allergies Allergy/AdvReac Type Severity Reaction Status Date / Time seasonal allergies Allergy Unknown Nasal Uncoded 10/11/21 11:59 congestion Review of Systems Sugical H&P ROS: Negative: Constitution, Cardiovascular, Respiratory, Neurological, Psychiatric, Hem-Onc, Allergic/Immunologic, Gastrointestinal, Genitourinary, Musculoskeletal, Integumentary, Endocrine and Eyes/Ears/Nose/Throat Exam Exam Comment: Gen appear: No acute distress, well nourished HEENT: no icterus Chest: No overt resp distress CVS: S1/S2, regular Abd: soft, nontender, nondistended Psych: Stable affect, answering questions appropriately Neuro: A/Ox3 noted to move all extremities spontaneously Plan Diagnosis/Plan: Unchanged I have reviewed the history and physical and performed a pertinent physical examination on my patient. No changes have occurred unless specified.
--- NOTE | 2022-02-14 11:29 | P.OP_ITS ---
Operative Note Operative Note Date of Service: 02/14/22 Narrative: Procedure: Colonoscopy Indication: Screening Endoscopist: Herminia Rader MD Anesthesia Provider: Dr Emily Phillips Anesthesia type: MAC Instrument: Olympus [id number]-[id number] Consent: Indication, risks vs benefits, and alternatives were discussed with the patient who gave written informed consent to proceed. EKG, pulse, pulse oximetry and blood pressure were monitored throughout the procedure. Please see anesthesia flowsheet. Procedure: The patient was brought to the procedure room and placed in the left lateral decubitus position. IV medications were administered by the anesthesia provider in attendance. A digital rectal exam was performed which was abnormal due to finding of hemorrhoids. The colonoscope was then inserted through the anus and advanced through the colon to the cecum at 70 cm,and terminal ileum. Mucosa was carefully examined under high definition white light as the instrument was slowly withdrawn in a retrograde panoramic fashion. Retroflexion was performed in ascending colon and rectum. The procedure was not difficult. There were no immediate obvious complications. The quality of the prep was BBPS: 3+3+3 = excellent Withdrawal time 14 minutes. Limitations: No limitations. Findings: Mucosa: Normal to cecum and terminal ileum. Protruding lesions: * Medium external hemorrhoids without stigmata of recent bleeding. Impression: 1. Normal colon mucosa 2. External hemorrhoids Recommendations: - Repeat colonoscopy in 10 years. No interval screening is needed in the interim to include stool test.
[2022-02-14 12:00] VITALS: BP 96/48; PULSE 63; RESP 16; TEMP 36.3; O2SAT 98
[2022-02-14 12:15] VITALS: BP 110/57; PULSE 57; RESP 18; TEMP 36.3; O2SAT 99
== END 2022-02-14 12:29 | disposition home or self-care (01) ==
PROVIDERS: PCP Family Medicine; Visit Provider Internal Medicine
PROC: 0DJD8ZZ Inspection of Lower Intestinal Tract, Via Natural or Artificial Opening Endoscopic (ICD-10-PCS; CPT 45378; principal; 2022-02-14 12:10)
DX: Z12.11 Encounter for screening for malignant neoplasm of colon (principal); K64.4 Residual hemorrhoidal skin tags; K59.00 Constipation, unspecified; E78.5 Hyperlipidemia, unspecified; E03.9 Hypothyroidism, unspecified; E04.1 Nontoxic single thyroid nodule; E28.2 Polycystic ovarian syndrome; Z90.49 Acquired absence of other specified parts of digestive tract; J45.909 Unspecified asthma, uncomplicated; F41.8 Other specified anxiety disorders; Z79.899 Other long term (current) drug therapy; Z87.891 Personal history of nicotine dependence
CPT/HCPCS: G0121

== ENCOUNTER 2022-04-08 11:26 | Emergency (ER) | payer OTHER, SELFPAY ==
--- NOTE | ~2022-04-08 | XR_ITS ---
EXAMINATION: XR CHEST CLINICAL INFORMATION: Chest pain, SOB. COMPARISON: None TECHNIQUE: 2 views of the chest were obtained. FINDINGS: No significant abnormality is noted involving the heart, lungs, mediastinum, bony thorax or soft tissues. XR/XR chest 2V IMPRESSION: Unremarkable chest examination.
--- NOTE | 2022-04-08 11:42 | ED_ITS ---
HPI - General Adult General Chief complaint: Chest Pain Stated complaint: r leg pain Time Seen by Provider: 04/08/22 11:39 Source: patient and EMS Mode of arrival: EMS Limitations: language barrier History of Present Illness HPI narrative: 46-year-old female with history of PCOS, hypothyroidism, asthma who presents with 1 week of cough, body ache. Since last night some chest discomfort which is worsened by deep breathing and coughing. No shortness of breath, leg swelling or leg pain. No fevers, chills, vomiting, diarrhea, urinary symptoms. Patient reports taking several COVID test at home which were negative. No recent travel or sick contact. Patient is on oral control pills for her PCOS Related Data Home Medications Medication Instructions Recorded Confirmed buspirone 15 mg tablet 15 mg PO BID 07/06/20 07/05/21 cyanocobalamin (vitamin B-12) 1,000 mcg PO DAILY 07/06/20 07/05/21 1,000 mcg tablet docusate sodium 100 mg capsule 100 mg PO BID 07/06/20 07/05/21 risperidone 2 mg tablet 2 mg PO QAM 07/06/20 07/05/21 risperidone 4 mg tablet 4 mg PO BEDTIME 07/06/20 07/05/21 topiramate 50 mg tablet 50 mg PO DAILY 07/06/20 07/05/21 trazodone 50 mg tablet [id number] mg PO BEDTIME PRN Sleep 07/06/20 07/05/21 venlafaxine 150 mg 150 mg PO DAILY 07/06/20 07/05/21 capsule,extended release 24 hr cetirizine 10 mg tablet 10 mg PO DAILY PRN allergies 11/24/20 07/05/21 fluticasone propionate 220 1 puff inhalation BID 12/19/20 07/05/21 mcg/actuation HFA aerosol inhaler (Flovent HFA) norethindrone (contraceptive) 0.35 0.35 mg PO DAILY 12/19/20 07/05/21 mg tablet bupropion HCl 150 mg tablet,12 hr 250 mg PO DAILY 03/06/21 07/05/21 sustained-release albuterol sulfate 2.5 mg/3 mL 3 ml inhalation QID PRN Wheezing 06/23/21 07/05/21 (0.083 %) solution for nebulization albuterol sulfate 90 mcg/actuation 2 puff PO Q4-6H PRN Wheezing 06/23/21 07/05/21 aerosol inhaler fluticasone propionate 50 1 spray intranasal BID PRN 06/23/21 07/05/21 mcg/actuation nasal allergies spray,suspension venlafaxine 37.5 mg 37.5 mg PO DAILY 10/11/21 capsule,extended release 24 hr Previous Rx's Medication Instructions Recorded spironolactone 25 mg tablet 25 mg PO BID 30 days #60 tabs 11/30/20 dexamethasone 1 mg tablet 1 mg PO DAILY #1 tab 03/06/21 benzonatate 100 mg capsule 100 mg PO TID PRN cough #30 caps 05/17/21 finasteride 5 mg tablet 5 mg PO DAILY 90 days #90 tabs 10/26/21 levothyroxine 112 mcg tablet 112 mcg PO DAILY #30 tabs 11/24/21 cholecalciferol (vitamin D3) 10 10 mcg PO DAILY #30 caps 11/30/21 mcg (400 unit) capsule metformin 500 mg tablet,extended 500 mg PO BEDTIME 90 days #90 tabs 12/04/21 release 24 hr pravastatin 20 mg tablet 20 mg PO DAILY #90 tabs 03/15/22 Allergies Allergy/AdvReac Type Severity Reaction Status Date / Time seasonal allergies Allergy Unknown Nasal Uncoded 10/11/21 11:59 congestion Review of Systems Review of Systems: Yes all other systems are reviewed and are negative Constitutional: Constitutional: Reports no additional constitutional complaints, Reports body ache(s), Denies chills, Denies fever(s), Denies headache(s) and Denies weakness Eyes: Eyes: Reports no additional eye complaints and Denies change in vision ENT: Reports system reviewed and no additional complaints, except as documented, Denies dizziness, Denies headache(s), Denies nasal congestion, Denies nasal discharge and Denies neck pain Cardiovascular: Cardiovascular: Reports no additional cardiovascular complaints, Reports chest pain, Denies leg edema and Denies dyspnea Respiratory: Respiratory: Reports no additional respiratory complaints, Reports cough and Denies dyspnea Gastrointestinal: Gastrointestinal: Reports no additional gastrointestinal complaints, Denies abdominal pain, Denies diarrhea, Denies nausea and Denies vomiting Genitourinary: Genitourinary: Reports no additional female genitourinary complaints and Denies urinary incontinence Musculoskeletal: Musculoskeletal: Reports no additional musculoskeletal complaints, Denies back pain, Denies arthralgias, Denies joint swelling, Denies neck pain, Denies numbness and Denies tingling Integumentary/Breasts: Skin/Breast: Reports system reviewed and no additional complaints, except as docu and Denies rash Neurologic: Reports system reviewed and no additional complaints, except as documented, Denies dizziness, Denies headache(s), Denies numbness, Denies tingling and Denies weakness [facility] Past Medical History Attestation statement: The following information was validated with the patient. Source: old records reviewed and nursing notes reviewed Medical History Anxiety and depression Asthma Bipolar disorder Dyslipidemia Hyperandrogenism Hypothyroidism Obesity (BMI 30-39.9) Ovarian cyst PCOS (polycystic ovarian syndrome) Sterilization Thyroid nodule Vitamin D deficiency Surgical History History of endometrial ablation History of lithotripsy History of surgical removal of skin lesion Hx of cholecystectomy Family History Family History Father No problems noted. Mother Thyroid disease Maternal Grandmother Diabetes mellitus Social History Social History Household Members: Children Household Members Other:: daughter Alcohol intake: never Patient Tobacco Use Status: Former Tobacco user Smoked in Last 30 Days: No Use of substances other than those prescribed or required for medical reasons: No Advance Directives: No Advance Directives Information Provided: No Patient : No Physical Exam ED Vital Signs: Vital Signs - 24 hr 04/08/22 11:49 04/08/22 14:28 Temperature 98.1 F 98.1 F Pulse Rate 62 56 Respiratory Rate 12 17 Blood Pressure 113/48 L 93/50 L Pulse Oximetry 99 96 Oxygen Delivery Method Room Air Room Air BMI result Body Mass Index 27.1 Const General: cooperative, healthy appearing, comfortable and no acute distress Orientation/consciousness: patient oriented x3 Limitations: no limitations HENMT Head: Yes normal to inspection Ears: hearing grossly normal bilaterally and TM's normal bilaterally General nose exam: Normal external nose present Face and sinus: Yes normal facial exam Mouth: Normal oral and palatal mucosa present Throat: Yes posterior oropharynx normal, Yes tonsils normal and Yes uvula midline Eyes General: appearance normal, both eyes and all related structures Pupils: Equal, round and reactive pupils present Neck Neck: Yes normal visual inspection, Yes full ROM, Yes no lymphadenopathy and Yes no meningeal signs Chest Chest palpation & inspection: normal inspection of the chest and tenderness (central chest tenderness to palp) Resp Effort & Inspection: normal respiratory effort Auscultation: clear to auscultation bilaterally Cardio Rate: regular rate Rhythm: regular rhythm Peripheral pulses: Peripheral pulses 2+ throughout GI Inspection: Yes normal to inspection Palpation (GI): Soft to palpation and nontender General: Yes no CVA tenderness Back/Spine/Pelvis Back: no CVA tenderness Thoracic/Lumbar Spine: thoracic and lumbar spine normal to inspection Skin General skin exam: no rashes or lesions noted Neuro General: patient oriented x3, moves all extremities and no meningeal signs Cranial nerves: Yes CN's II-XII intact bilaterally, Yes Equal, round and r eactive pupils present, Yes Bilaterally intact EOM present, Yes Nystagmus not present, Yes Normal facial strength present and Yes Midline tongue present Cognition (Neuro): normal cognition Gait exam (Neuro): Normal gait present Motor exam (neuro): 5/5 motor strength present throughout Sensory Exam: Normal double simultaneous stimulation for sensation Deep tendon reflexes (DTR's): Right patellar reflex intensity grade: 2+ and Left patellar reflex intensity grade: 2+ Coordination: [id number] test normal, [id number] test normal and tandem gait normal Extrem General: Yes normal to inspection, Yes no pedal edema and Yes no calf tenderness Course Course Course Narrative: Labs are unremarkable. Chest x-ray is negative for any infection. EKG is negative for ischemic changes. Flu and COVID testing are negative. Likely chest wall strain secondary to coughing. Likely viral syndrome underlying. Patient has no wheezing on exam or difficulty breathing to suggest asthma exacerbation. When I went in to re-examine the patient she started complaining of a headache which she describes as frontal and pressure. Patient denies any associated photophobia, phonophobia, nausea or vomiting. She also reports bottom of her feet she has some tingling in both feet. Repeat neurological exam unchanged. No focal finding. Patient given NSAID, IVF and will re-assess. Likely migraine, POWER. Low suspicion for meningitis with no nuchal rigidity/lymphadenopathy/fever. Less likely GUillian [place] vwith no reports of ascending paresthesias, normal neuro exam including STR -considered PE but less likely with perc 0, considered dissection but less likely with gradual onset, considered ACS but less likely with several days of symptoms and negative troponin with nonischemic EKG Reevaluation(s) Reevaluation #1: [id number]-Patient reports feeling improved. Will discharge home with recommendations for supportive care. Reviewed worrisome signs and symptoms when to return to the emergency room. Comfortable plan for discharge home. Medications Administered Discontinued Medications Generic Name Dose Route Start Last Admin Trade Name Freq PRN Reason Stop Dose Admin Al Hydroxide/Mg Hydroxide 30 ml 04/08/22 15:15 04/08/22 15:53 Magnesium Hydrox/Alum Hydrox 30 Ml Oral.Susp PO 04/08/22 15:16 30 ml ONCE ONE Administration Sodium Chloride 1,000 mls @ 999 mls/hr 04/08/22 14:05 04/08/22 15:42 Ns IV 04/08/22 15:05 Infused .Q1H1M STA Infusion Ketorolac Tromethamine 30 mg 04/08/22 13:19 04/08/22 13:49 Ketorolac Tromethamine 30 Mg/Ml Vial IVPUSH 04/08/22 13:20 30 mg ONCE ONE Administration Lidocaine HCl 15 ml 04/08/22 15:15 04/08/22 15:53 Lidocaine Hcl Viscous 2 % 15 Ml Solution MUCOUS MEM 04/08/22 15:16 15 ml ONCE ONE Administration Medical Decision Making MDM Narrative Medical decision making narrative: 46-year-old female here with 1 week of cough and body aches now with some chest discomfort since yesterday which is worsened with deep breathing and movement. On arrival lungs are clear. Vitals are stable. Patient received 324 aspirin prior to arrival by EMS. Will check chest x-ray, EKG, labs, COVID and flu testing Differential Diagnosis Differential Diagnosis: Consider asthma exacerbation, PE, pneumonia, viral syndrome Medical Records Medical records reviewed: Yes I reviewed the patient's medical records. Lab Data Lab results reviewed: Yes I reviewed the patient's lab results. Result diagrams: 04/08/22 12:28 04/08/22 12:28 Labs: Lab Results 04/08/22 04/08/22 04/08/22 Range/Units 12:28 12:28 12:28 WBC 6.4 (4.8-10.8) X10*3/uL RBC 4.70 (4.20-5.50) X10*6/uL Hgb 12.5 (12.0-16.0) g/dl Hct 37.8 (37.0-47.0) % MCV 80.4 (80.0-98.0) fL MCH 26.6 L (27.0-33.0) pg MCHC 33.1 (31.0-35.0) g/dl RDW 13.0 (11.0-16.0) % Plt Count 233 (160-400) X10*3/uL MPV 11.8 (9.4-12.3) fL Immature Gran % (Auto) 0.3 (0.0-0.4) % Neut % (Auto) 78.5 H (45-73) % Lymph % (Auto) 12.8 L (20-40) % Bacon % (Auto) 6.2 (2-11) % Eos % (Auto) 2.0 (0-4) % Baso % (Auto) 0.2 (0-2) % Lymph # (Auto) 0.8 L (1.2-4.9) X10*3/uL Bacon # (Auto) 0.4 (0.1-1.2) X10*3/uL Eos # (Auto) 0.1 (0.0-0.4) X10*3/uL Baso # (Auto) 0.0 (0.0-0.2) X10*3/uL Abs Immat Gran (auto) 0.02 (0.00-0.03) X10*3/uL Absolute Neuts (auto) 5.1 (2.0-8.3) x10*3/uL Absolute Nucleated RBC 0.000 (0.0-0.012) X10*3/uL Nucleated RBC % (auto) 0.0 (0.0-0.2) /100WBC PT 11.3 (10.0-13.1) SEC INR 1.0 (0.9-1.1) D-Dimer High Sensitivty 156 NG/ML Sodium 141 (135-145) mmol/L Potassium 3.7 D (3.3-5.1) mmol/L Chloride 112 H (96-108) mmol/L Carbon Dioxide 20 L (22-29) mmol/L Anion Gap 13 (12-20) BUN 13 (9-16) mg/dL Creatinine 0.64 (0.5-1.4) mg/dL Estim Creat Clear Calc 114.5 Estimated GFR > 60 Random Glucose 115 (60-115) mg/dL Calcium 9.0 (8.4-10.2) mg/dL Magnesium 2.0 (1.6-2.6) mg/dL Total Bilirubin 0.3 (0.0-1.0) mg/dL Direct Bilirubin < 0.2 (0.0-0.5) mg/dL AST 55 H (5-31) U/L ALT 35 H (0-31) U/L Alkaline Phosphatase 64 (39-117) U/L Troponin I High Sens (<3.5-17.0) ng/L Total Protein 6.3 L (6.5-8.0) g/dL Albumin 4.0 (3.5-5.0) g/dL COVID-19 ([facility]) (Negative) COVID-19 Clin Com Influenza Type A ([facility]) (Negative) Influenza Type B ([facility]) (Negative) Influenza A & B Note 04/08/22 04/08/22 04/08/22 Range/Units 12:28 12:28 12:28 WBC (4.8-10.8) X10*3/uL RBC (4.20-5.50) X10*6/uL Hgb (12.0-16.0) g/dl Hct (37.0-47.0) % MCV (80.0-98.0) fL MCH (27.0-33.0) pg MCHC (31.0-35.0) g/dl RDW (11.0-16.0) % Plt Count (160-400) X10*3/uL MPV (9.4-12.3) fL Immature Gran % (Auto) (0.0-0.4) % Neut % (Auto) (45-73) % Lymph % (Auto) (20-40) % Bacon % (Auto) (2-11) % Eos % (Auto) (0-4) % Baso % (Auto) (0-2) % Lymph # (Auto) (1.2-4.9) X10*3/uL Bacon # (Auto) (0.1-1.2) X10*3/uL Eos # (Auto) (0.0-0.4) X10*3/uL Baso # (Auto) (0.0-0.2) X10*3/uL Abs Immat Gran (auto) (0.00-0.03) X10*3/uL Absolute Neuts (auto) (2.0-8.3) x10*3/uL Absolute Nucleated RBC (0.0-0.012) X10*3/uL Nucleated RBC % (auto) (0.0-0.2) /100WBC PT (10.0-13.1) SEC INR (0.9-1.1) D-Dimer High Sensitivty NG/ML Sodium (135-145) mmol/L Potassium (3.3-5.1) mmol/L Chloride (96-108) mmol/L Carbon Dioxide (22-29) mmol/L Anion Gap (12-20) BUN (9-16) mg/dL Creatinine (0.5-1.4) mg/dL Estim Creat Clear Calc Estimated GFR Random Glucose (60-115) mg/dL Calcium (8.4-10.2) mg/dL Magnesium (1.6-2.6) mg/dL Total Bilirubin (0.0-1.0) mg/dL Direct Bilirubin (0.0-0.5) mg/dL AST (5-31) U/L ALT (0-31) U/L Alkaline Phosphatase (39-117) U/L Troponin I High Sens < 3.5 (<3.5-17.0) ng/L Total Protein (6.5-8.0) g/dL Albumin (3.5-5.0) g/dL COVID-19 ([facility]) Negative (Negative) COVID-19 Clin Com See Note Influenza Type A ([facility]) Negative (Negative) Influenza Type B ([facility]) Negative (Negative) Influenza A & B Note See Note Imaging Data Chest x-ray: Attestation: I personally reviewed and interpreted this imaging study as follows: Radiologist's impression: [address] [address] XRay Report Signed Patient: Lupe Leos I MR#: [id number] : 1975 Acct:[id number] Age/Sex: 46 / F ADM Date: 04/08/22 Loc: HO.ED Attending Dr: Ordering Physician: Peyton Tang NP Date of Service: 04/08/22 Procedure(s): XR chest 2V Accession Number(s): [id number] cc: Peyton Tang NP~ EXAMINATION: XR CHEST CLINICAL INFORMATION: Chest pain, SOB. COMPARISON: None TECHNIQUE: 2 views of the chest were obtained. FINDINGS: No significant abnormality is noted involving the heart, lungs, mediastinum, bony thorax or soft tissues. XR/XR chest 2V IMPRESSION: Unremarkable chest examination. ECG Data Attestation: I personally reviewed and interpreted this ECG as follows: Interpretation: Normal sinus rhythm with a rate of 61, normal MN, normal QRS, normal QT Discharge Plan Discharge Clinical Impression: Chest wall pain, Acute viral syndrome, Head ache Patient Disposition: Home, Self-Care Additional Instructions: Testing for flu and covid are negative Lab work, ekg and chest x-ray are all reassuring Increase fluids at home Take motrin or tylenol for pain or fever Prescriptions: No Action spironolactone 25 mg tablet 25 mg PO BID 30 Days Qty: 60 5RF finasteride 5 mg tablet 5 mg PO DAILY 90 Days Qty: 90 2RF levothyroxine 112 mcg tablet 112 mcg PO DAILY Qty: 30 5RF cholecalciferol (vitamin D3) 10 mcg (400 unit) capsule 10 mcg PO DAILY Qty: 30 5RF metformin 500 mg tablet extended release 24 hr 500 mg PO BEDTIME 90 Days Qty: 90 1RF pravastatin 20 mg tablet 20 mg PO DAILY Qty: 90 3RF benzonatate 100 mg capsule 100 mg PO TID PRN (Reason: cough) Qty: 30 0RF albuterol sulfate 2.5 mg /3 mL (0.083 %) solution for nebulization 3 ml inhalation QID PRN (Reason: Wheezing) albuterol sulfate 90 mcg/actuation HFA aerosol inhaler 2 puff PO Q4-6H PRN (Reason: Wheezing) fluticasone propionate 50 mcg/actuation spray,suspension 1 spray intranasal BID PRN (Reason: allergies) cetirizine 10 mg tablet 10 mg PO DAILY PRN (Reason: allergies) docusate sodium 100 mg capsule 100 mg PO BID risperidone 2 mg tablet 2 mg PO QAM risperidone 4 mg tablet 4 mg PO BEDTIME cyanocobalamin (vitamin B-12) 1,000 mcg tablet 1,000 mcg PO DAILY topiramate 50 mg tablet 50 mg PO DAILY buspirone 15 mg tablet 15 mg PO BID venlafaxine 150 mg capsule,extended release 24hr 150 mg PO DAILY trazodone 50 mg tablet [id number] mg PO BEDTIME PRN (Reason: Sleep) bupropion HCl 150 mg tablet sustained-release 12 hr 250 mg PO DAILY Flovent HFA 220 mcg/actuation HFA aerosol inhaler 1 puff inhalation BID norethindrone (contraceptive) 0.35 mg tablet 0.35 mg PO DAILY dexamethasone 1 mg tablet 1 mg PO DAILY Qty: 1 0RF venlafaxine 37.5 mg capsule,extended release 24hr 37.5 mg PO DAILY Referrals: Physician,Unknown J [Primary Care Provider] - Stand Alone Forms: Work/School Release Interventions: ED Discharge Assessment Last Done: 04/08/22 16:27 Discharge Date/Time: 04/08/22 16:27
--- NOTE | 2022-04-08 11:47 | ECG_ITS ---
Test Reason : CP/SOB Blood Pressure : / mmHG Vent. Rate : 061 BPM Atrial Rate : 061 BPM P-R Int : 166 ms QRS Dur : 088 ms QT Int : 448 ms P-R-T Axes : 009 016 -07 degrees QTc Int : 450 ms Normal sinus rhythm RSR' or QR pattern in V1 suggests right ventricular conduction delay Nonspecific ST abnormality Abnormal ECG No significant changes seen Referred By: Peyton Tang Electronically Signed By:STAN ROTHMAN MD
[2022-04-08 11:49] VITALS: BP 104/70; BP 113/48; PULSE 62; RESP 12; TEMP 36.7; O2SAT 99; BMI 27.1
[2022-04-08 12:35] LABS: MANUAL DIFF FLAG NO
[2022-04-08 12:54] LABS: Alanine Aminotransferase 35 U/L (0-31); Alkaline Phosphatase 64 U/L (39-117); Anion Gap 13 (12-20); Aspartate Amino Transferase 55 U/L (5-31); Bilirubin Direct < 0.2 mg/dL (0.0-0.5); Bilirubin Total 0.3 mg/dL (0.0-1.0); Blood Urea Nitrogen 13 mg/dL (9-16); Carbon Dioxide 20 mmol/L (22-29); Chloride 112 mmol/L (96-108); Creatinine Clr Calc Pharmacy 114.5; Estimated Glomerular Filt Rate > 60; Glucose Random 115 mg/dL (60-115); Potassium 3.7 mmol/L (3.3-5.1); Sodium 141 mmol/L (135-145); Total Protein 6.3 g/dL (6.5-8.0)
[2022-04-08 12:55] LABS: COVID-19 Test Negative (Negative); IDNOW Serial# 16C4AD1C; IDNOW Serial# BCCEAD1C; Influenza A Negative (Negative); Influenza B2 Negative (Negative)
[2022-04-08 13:01] LABS: Troponin-I High Sensitivity < 3.5 ng/L (<3.5-17.0)
[2022-04-08 13:04] LABS: Basophils Percent Auto 0.2 % (0-2); Eosinophils Absolute Auto 0.1 X10*3/uL (0.0-0.4); Hematocrit 37.8 % (37.0-47.0); Hemoglobin 12.5 g/dl (12.0-16.0); Imm Gran Abs Auto 0.02 X10*3/uL (0.00-0.03); Imm Gran Pct Auto 0.3 % (0.0-0.4); Lymphocytes Absolute Auto 0.8 X10*3/uL (1.2-4.9); Lymphocytes Percent Auto 12.8 % (20-40); Mean Corpuscular HGB Conc 33.1 g/dl (31.0-35.0); Mean Corpuscular Hemoglobin 26.6 pg (27.0-33.0); Mean Corpuscular Volume 80.4 fL (80.0-98.0); Mean Platelet Volume 11.8 fL (9.4-12.3); Monocytes Absolute Auto 0.4 X10*3/uL (0.1-1.2); Monocytes Percent Auto 6.2 % (2-11); Neutrophils Absolute Auto 5.1 x10*3/uL (2.0-8.3); Neutrophils Percent Auto 78.5 % (45-73); Platelet Count 233 X10*3/uL (160-400); White Blood Count 6.4 X10*3/uL (4.8-10.8)
[2022-04-08 13:11] LABS: Prothrombin Time 11.3 SEC (10.0-13.1)
[2022-04-08 13:13] LABS: D Dimer High Sensitivity 156 NG/ML
[2022-04-08] MEDS: Ketorolac Tromethamine 30 MG/ML VIAL IVPUSH (13:49)
[2022-04-08] MEDS: 0.9 % Sodium Chloride 1,000 ML 999 ML IV (14:21)
[2022-04-08 14:28] VITALS: BP 93/50; PULSE 56; RESP 17; TEMP 36.7; O2SAT 96
[2022-04-08] MEDS: Magnesium Hydrox/Alum Hydrox 30 ML ORAL.SUSP PO (15:53)
[2022-04-08] MEDS: Lidocaine HCl Viscous 2 % 15 ML SOLUTION MUCOUS MEM (15:53)
== END 2022-04-08 16:27 | disposition home or self-care (01) ==
PROVIDERS: Nurse Practitioner Family; Emergency Provider Emergency Medicine
DX: R07.89 Other chest pain (principal); B34.9 Viral infection, unspecified; R05.9 Cough, unspecified; R51.9 Headache, unspecified; M79.10 Myalgia, unspecified site; R06.02 Shortness of breath; Z20.822 Contact with and (suspected) exposure to COVID-19; Z79.899 Other long term (current) drug therapy; Z87.891 Personal history of nicotine dependence
CPT/HCPCS: 71046; 80048; 80076; 83735; 84484; 85025; 85379; 85610; 87502; 87635; 93005; 96374; 99285; J1885

== ENCOUNTER 2022-05-30 13:20 | Outpatient (REF) | payer OTHER, SELFPAY ==
[2022-06-02 03:18] LABS: HPV mRNA E6/E7 rflx Not Detected (Not Detected)
== END 2022-05-30 13:21 | disposition home or self-care (01) ==
LOC: HO.LNP 13:20
PROVIDERS: Visit Provider Obstetrics & Gynecology
DX: Z01.419 Encounter for gynecological examination (general) (routine) without abnormal findings (principal); Z11.51 Encounter for screening for human papillomavirus (HPV)
CPT/HCPCS: 87624; 88142

== ENCOUNTER 2022-06-18 11:46 | Outpatient (REF) | payer OTHER, SELFPAY ==
--- NOTE | ~2022-06-18 | MM_ITS ---
EXAMINATION: MM SCREENING DIGITAL BREAST TOMOSYNTHESIS, BILATERAL CLINICAL INFORMATION: Screening. Asymptomatic. The lifetime risk of breast cancer based on the Tyrer-Cuzick Model is 9.0%. COMPARISON: Mammography: January 05, 2021 and studies dating back to July 10, 2016 TECHNIQUE: Digital breast tomosynthesis is performed in both the craniocaudal and mediolateral oblique views along with computer-aided detection (CAD). Synthesized 2D images are generated from the tomosynthesis. FINDINGS: There are scattered areas of fibroglandular density (ACR BI-RADS breast composition Category b). There are no significant masses, abnormal calcifications, or other abnormalities. MM/MM tomosynthesis screening BI IMPRESSION: No significant changes ASSESSMENT: BI-RADS 1: Negative RECOMMENDATION: Routine annual mammography screening. This patient's information was entered into a reminder system with a target due date for their next mammogram.
== END 2022-06-18 11:47 | disposition home or self-care (01) ==
LOC: HO.MAMMO 11:46
PROVIDERS: PCP Family Medicine; Visit Provider Obstetrics & Gynecology
DX: Z12.31 Encounter for screening mammogram for malignant neoplasm of breast (principal)
CPT/HCPCS: 77063; 77067

== ENCOUNTER → 2022-07-04 08:49 | Outpatient (BNVA) | payer OTHER, SELFPAY | PROVIDERS: PCP Family Medicine; Visit Provider Internal Medicine Endocrinology, Diabetes & Metabolism | DX: E28.2 Polycystic ovarian syndrome (principal); E04.1 Nontoxic single thyroid nodule; E89.0 Postprocedural hypothyroidism | CPT/HCPCS: 99212 ==

== ENCOUNTER 2022-07-04 09:18 | Outpatient (REF) | payer OTHER, SELFPAY ==
[2022-07-04 12:19] LABS: Free T4 (Free Thyroxine) 1.26 ng/dL (0.71-1.85); Thyroid Stimulating Hormone 0.24 uIU/mL (0.32-4.0)
== END 2022-07-04 09:19 | disposition home or self-care (01) ==
LOC: HO.10HDL 09:18
PROVIDERS: Visit Provider Internal Medicine Endocrinology, Diabetes & Metabolism
DX: E89.0 Postprocedural hypothyroidism (principal); E04.1 Nontoxic single thyroid nodule
CPT/HCPCS: 36415; 84439; 84443

== ENCOUNTER 2022-08-23 14:30 | Outpatient (RCR) | payer OTHER, SELFPAY ==
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
[2022-08-14 12:59] VITALS: BP 110/62; PULSE 68; TEMP 37.2
[2022-08-14 13:03] VITALS: BMI 28.7
--- NOTE | 2022-08-14 13:41 | PC.ADMIT ---
Patient is a 47 year old female who was referred to [facility] by her therapist d/t intrusive compulsive thoughts and AH. 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 Denied plan or intent to kill herself. Patient did not appear to be responding to internal stimuli. Thoughts are clear and logical. She lives with her 20 year old daughter, who is supportive along with her mother. Patient also reports she has a partner who is supportive who she has been with for the past 5 years. Patient given a copy of her safety plan if needed and I reviewed the safety plan with her. Patient reports she is taking 2 weeks off from work at [employer] to attend the [facility] program. Wants to learn coping skills. Patient is alert and oriented x4. Calm and cooperative. Presented with depressed mood and anxious affect. Medications reconciled with patient's QIANA Bailey RN and medication list patient provided from QIANA Bailey RN. Patient reports taking her medications as prescribed.
--- NOTE | 2022-08-14 15:04 | HO.PHP ---
I called and left a message with the clients therapist Caitlin Lugo at [facility] re client started program.
--- NOTE | 2022-08-16 15:28 | HO.PHP ---
Case reviewed and opened in clinical team
--- NOTE | 2022-08-23 10:59 | HO.PHPPROGNO ---
Subjective Subjective Date of Service: 08/23/22 Reason For Visit: depression, ocd Medical Problems Affecting Mental Status: No Interim History: Describes mood as ?good, less anxious ?. Continues with OCD symptoms/behaviors (cleaning), not concerned at this time. No SI, feels safe. Looking forward to returning to work on Saturday. Requests note covering time-out, able to return to work for 7 team without restrictions. No concerns regarding medications. Feels stable for discharge from [facility] at this time. Medication Compliance: Yes Side effects from medications: No Attending Groups: Yes Review of Systems Acute medical concerns: No Medical Review of Systems: unchanged Review of Systems Review of Systems Yes all other systems are reviewed and are negative Constitutional: Reports no additional constitutional complaints Mental Status Exam Mental Status Exam Narrative: Well-developed, well-nourished female, NAD. Patient Appearance: Well Grooomed Patient Orientation: Person, Place, Time and Situation Level of Consciousness: Appropriate Patient Behavior: Appropriate Mood Description: Anxious (less) Affect Description: Anxious (improving) Patient Cognition Impaired: No Ability to Follow Directions: Excellent Speech Pattern: Clear Memory Description: Intact Hallucinations: Auditory (Reports them as baseline) Delusions: Not Present Thought Process: Intact Thought Content: positive for Obsessional Thoughts (Focused on cleanliness) Depressive Symptoms: Increased Anxiety Judgement: Good Diagnostics Vital Signs (24Hr): BMI result Body Mass Index 28.7 Assessment & Plan Assessment & Plan (1) DELILAH (generalized anxiety disorder): Status: Acute Code(s): F41.1 - Generalized anxiety disorder Assessment and Plan: Describes mood as ?good, less anxious ?. Reports that she feels stable at this time. Continues with OCD symptoms/behaviors (cleaning), not concerned at this time. No SI, feels safe. Has found the groups in partial helpful in learning how to better manage her symptoms of anxiety/OCD/depression. Continues with some auditory hallucinations, states that these are her baseline, denies any concerns. Looking forward to returning to work on Saturday. Requests note covering time-out, able to return to work for 7 team without restrictions. No concerns regarding medications. Feels stable for discharge from [facility] at this time. (2) OCD (obsessive compulsive disorder): Status: Acute Code(s): F42.9 - Obsessive-compulsive disorder, unspecified (3) Bipolar II disorder: Status: Acute Code(s): F31.81 - Bipolar II disorder Plan 1. Patient appears stable for discharge from [facility] at this time. 2. Return to work note provided. 3. Patient to follow-up with outpatient providers going forward. Patient educated on: diagnosis, medication risk/benefits and therapeutic strategies Reason for contiued partial hosp. stay Substantial Risk for: stable for discharge Certification I certify that partial hospital treatment is medically necessary due to the symptoms and problems resulting from the patient's mental illness and the failure to treat the patient at the partial hospital level of care would likely result in the patient requiring inpatient psychiatric care which could not be prevented at a less intensive level of care. Total time managing care of this patient today _15___ minutes. Discharge Plan Discharge Attending provider: Caleb Banerjee Medications: No Action pravastatin 20 mg tablet 20 mg PO DAILY Qty: 90 3RF metformin 500 mg tablet extended release 24 hr 500 mg PO BEDTIME Qty: 90 1RF levothyroxine 100 mcg tablet 100 mcg PO DAILY Qty: 30 5RF finasteride 5 mg tablet 5 mg PO DAILY 90 Days Qty: 90 2RF clonazepam 0.5 mg Tablet 1 mg PO BEDTIME Rx Instructions: Administer 30 minutes before bedtime. Take 2 tablets at bedtime. bupropion HCl 150 mg tablet sustained-release 12 hr 150 mg PO BID cetirizine 10 mg tablet 10 mg PO QAM cholecalciferol (vitamin D3) 125 mcg (5,000 unit) capsule 125 mcg PO DAILY cyclobenzaprine [Flexeril] 5 mg Tablet 5 mg PO DAILY albuterol sulfate 2.5 mg /3 mL (0.083 %) solution for nebulization 3 ml inhalation QID PRN (Reason: Wheezing) albuterol sulfate 90 mcg/actuation HFA aerosol inhaler 2 puff PO Q4-6H PRN (Reason: Wheezing) fluticasone propionate 50 mcg/actuation spray,suspension 1 spray intranasal BID PRN (Reason: allergies) docusate sodium 100 mg capsule 100 mg PO BID risperidone 2 mg tablet 2 mg PO QAM risperidone 4 mg tablet 4 mg PO BEDTIME cyanocobalamin (vitamin B-12) 1,000 mcg tablet 1,000 mcg PO DAILY topiramate 50 mg tablet 50 mg PO DAILY venlafaxine 150 mg capsule,extended release 24hr 150 mg PO DAILY trazodone 50 mg tablet 100 mg PO BEDTIME Flovent HFA 220 mcg/actuation HFA aerosol inhaler 1 puff inhalation BID clonazepam 0.5 mg tablet 0.5 mg PO DAILY Stand Alone Forms: Patient Portal Discharge page Patient Education: Bipolar Disorder (DC), Panic Disorder (DC)
== END 2022-08-23 23:59 | disposition home or self-care (01) ==
LOC: HO.PHPA 14:30
PROVIDERS: Visit Provider Psychiatry & Neurology Psychiatry
DX: F31.81 Bipolar II disorder (principal); F42.9 Obsessive-compulsive disorder, unspecified; F41.1 Generalized anxiety disorder
CPT/HCPCS: 90791; 90853

== ENCOUNTER 2022-10-19 20:07 | Emergency (ER) | payer OTHER, SELFPAY ==
--- NOTE | ~2022-10-19 | XR_ITS ---
EXAMINATION: XR CHEST CLINICAL INFORMATION: Chest pain COMPARISON: 04/08/2022 TECHNIQUE: 2 views of the chest were obtained. FINDINGS: The lungs are well expanded. There is no focal consolidation, edema, or effusion. No pneumothorax. The cardiomediastinal silhouette is within normal limits. No acute osseous abnormality. Mild degenerative changes of the spine. XR/XR chest 2V IMPRESSION: Clear lungs.
--- NOTE | 2022-10-19 20:13 | ECG_ITS ---
Test Reason : CHEST PAIN Blood Pressure : / mmHG Vent. Rate : 064 BPM Atrial Rate : 064 BPM P-R Int : 176 ms QRS Dur : 082 ms QT Int : 436 ms P-R-T Axes : 062 019 011 degrees QTc Int : 449 ms Normal sinus rhythm Cannot rule out Anterior infarct , age undetermined Abnormal ECG When compared to the previous EKG of No significant changes seen Referred By: Generic ED Physician Electronically Signed By:Francisco Sheehan
[2022-10-19 20:42] VITALS: BP 111/57; PULSE 55; RESP 18; TEMP 36; O2SAT 100; BMI 31.0
--- NOTE | 2022-10-19 20:43 | ED.GENADULT ---
HPI - General Adult General Chief complaint: Chest Pain Stated complaint: Chest pain Time Seen by Provider: 10/19/22 21:55 Source: patient Mode of arrival: ambulatory History of Present Illness HPI narrative: 47-year-old female who presents with chest pressure that started today at 18:00 and radiates to the right upper extremity, the pain has continued and patient denies any association with deep inspiration or movement, she also denies any sore throat, cough, fever, chills, nausea/diaphoresis/dizziness/recent travel eyes states that this has happened previously but there was a negative workup. Patient does report being on control and is a nonsmoker. Related Data Home Medications Medication Instructions Recorded Confirmed cyanocobalamin (vitamin B-12) 1,000 mcg PO DAILY 07/06/20 08/14/22 1,000 mcg tablet docusate sodium 100 mg capsule 100 mg PO BID 07/06/20 08/14/22 risperidone 2 mg tablet 2 mg PO QAM 07/06/20 08/14/22 risperidone 4 mg tablet 4 mg PO BEDTIME 07/06/20 08/14/22 topiramate 50 mg tablet 50 mg PO DAILY 07/06/20 08/14/22 trazodone 50 mg tablet 100 mg PO BEDTIME 07/06/20 08/14/22 venlafaxine 150 mg 150 mg PO DAILY 07/06/20 08/14/22 capsule,extended release 24 hr fluticasone propionate 220 1 puff inhalation BID 12/19/20 08/14/22 mcg/actuation HFA aerosol inhaler (Flovent HFA) albuterol sulfate 2.5 mg/3 mL 3 ml inhalation QID PRN Wheezing 06/23/21 08/14/22 (0.083 %) solution for nebulization albuterol sulfate 90 mcg/actuation 2 puff PO Q4-6H PRN Wheezing 06/23/21 08/14/22 aerosol inhaler fluticasone propionate 50 1 spray intranasal BID PRN 06/23/21 08/14/22 mcg/actuation nasal allergies spray,suspension clonazepam 0.5 mg tablet 0.5 mg PO DAILY 05/30/22 08/14/22 bupropion HCl 150 mg tablet,12 hr 150 mg PO BID 08/14/22 08/14/22 sustained-release cetirizine 10 mg tablet 10 mg PO QAM 08/14/22 08/14/22 cholecalciferol (vitamin D3) 125 125 mcg PO DAILY 08/14/22 08/14/22 mcg (5,000 unit) capsule clonazepam 0.5 mg tablet 1 mg PO BEDTIME 08/14/22 08/14/22 cyclobenzaprine 5 mg tablet 5 mg PO DAILY 08/14/22 08/14/22 Previous Rx's Medication Instructions Recorded pravastatin 20 mg tablet 20 mg PO DAILY #90 tabs 03/15/22 levothyroxine 100 mcg tablet 100 mcg PO DAILY #30 tabs 07/04/22 finasteride 5 mg tablet 5 mg PO DAILY 90 days #90 tabs 08/17/22 metformin 500 mg tablet,extended 500 mg PO BEDTIME #90 tabs 09/11/22 release 24 hr Allergies Allergy/AdvReac Type Severity Reaction Status Date / Time seasonal allergies Allergy Unknown Nasal Uncoded 10/19/22 20:42 congestion Review of Systems Review of Systems: Pertinent positives and negatives as stated in HPI [facility] Past Medical History Source: nursing notes reviewed Medical History Anxiety and depression Asthma Bipolar disorder Dyslipidemia Hyperandrogenism Hypothyroidism Obesity (BMI 30-39.9) Ovarian cyst PCOS (polycystic ovarian syndrome) Sterilization Thyroid nodule Vitamin D deficiency Surgical History History of endometrial ablation History of lithotripsy History of surgical removal of skin lesion Hx of cholecystectomy Family History Family History Father No problems noted. Mother Thyroid disease Maternal Grandmother Diabetes mellitus Social History Social History Household Members: Children Household Members Other:: daughter Housing: Apartment Alcohol intake: never Patient Tobacco Use Status: Former Tobacco user Smoked in Last 30 Days: No Use of substances other than those prescribed or required for medical reasons: No Advance Directives: No Advance Directives Information Provided: Yes Patient : No Current occupational status: unemployed Sexual orientation: Straight/Heterosexual Gender identity: Female Physical Exam ED Vital Signs: Vital Signs - 24 hr 10/19/22 20:42 10/19/22 23:22 Temperature 96.8 F 98.1 F Pulse Rate 55 61 Respiratory Rate 18 13 Blood Pressure 111/57 L 108/57 L Pulse Oximetry 100 99 Oxygen Delivery Method Room Air Room Air BMI result Body Mass Index 31.0 VITAL SIGNS: Reviewed. GENERAL: Well developed, well nourished, in no acute distress. HEAD: Normocephalic/atraumatic EYES: PERRLA, EOMI EARS: Ext canals without abnormality NOSE: Nares patent bilateral OROPHARYNX: no oral lesions noted, posterior pharynx clear NECK: Supple, no adenopathy LUNGS: Normal breath sounds. No adventitious sounds or accessory muscle use. SpO2<99> CARDIOVASCULAR: Regular rate and rhythm without noted murmurs ABDOMEN: Soft, non-tender, non-distended with bowel sounds. MUSCULOSKELETAL: No tenderness, deformities, or effusions noted on gross inspection. EXTREMITIES: No cyanosis, clubbing or edema. SKIN: Inspection of the skin reveals no rashes NEUROLOGIC: Alert and oriented x 4. Strength and sensation to light touch were grossly intact x 4. Course Course Course Narrative: This is an RME: Additional HPI, ROS, PE not included below will be deferred to primary provider. This is a [id number]-female, hx of DELILAH, OCD, Bipolar disorder, hypothyroidism, and HLD, presenting to the emergency department with complaints of squeezing chest pain since today. Also reporting some numbness tingling down her right arm. Pt is comfortable. VSS. No N/V/D. Plan: Labs, CXR, EKG ordered Medications Administered Discontinued Medications Generic Name Dose Route Start Last Admin Trade Name Freq PRN Reason Stop Dose Admin Al Hydroxide/Mg Hydroxide 30 ml 10/19/22 23:00 10/19/22 23:18 Magnesium Hydrox/Alum Hydrox 30 Ml Oral.Susp PO 10/19/22 23:01 30 ml ONCE ONE Administration Lidocaine HCl 10 ml 10/19/22 23:00 10/19/22 23:18 Lidocaine Hcl Viscous 2 % 15 Ml Solution MUCOUS MEM 10/19/22 23:01 10 ml ONCE ONE Administration Medical Decision Making Medical Decision Making MDM Narrative: 47-year-old female who presents with chest pressure radiating to the right arm denies any traumatic injury, does have a history of anxiety, no associated symptoms to further support cardiac etiology in feel that this is an atypical presentation but there is also no relation to respiratory or movement. Patient does appear clinically to be very comfortable. HEART Score: 2, PERC negative. Differential Diagnosis Please see the discussion above Lab Data Please see the discussion above 10/19/22 20:54 10/19/22 20:54 Labs: Lab Results 10/19/22 10/19/22 10/19/22 Range/Units 20:54 20:54 20:54 WBC 6.0 (4.8-10.8) X10*3/uL RBC 4.64 (4.20-5.50) X10*6/uL Hgb 12.4 (12.0-16.0) g/dl Hct 37.4 (37.0-47.0) % MCV 80.6 (80.0-98.0) fL MCH 26.7 L (27.0-33.0) pg MCHC 33.2 (31.0-35.0) g/dl RDW 12.9 (11.0-16.0) % Plt Count 278 (160-400) X10*3/uL MPV 10.4 (9.4-12.3) fL Immature Gran % (Auto) 0.3 (0.0-0.4) % Neut % (Auto) 56.2 (45-73) % Lymph % (Auto) 27.1 (20-40) % [place] % (Auto) 11.1 H (2-11) % Eos % (Auto) 4.8 H (0-4) % Baso % (Auto) 0.5 (0-2) % Lymph # (Auto) 1.6 (1.2-4.9) X10*3/uL [place] # (Auto) 0.7 (0.1-1.2) X10*3/uL Eos # (Auto) 0.3 (0.0-0.4) X10*3/uL Baso # (Auto) 0.0 (0.0-0.2) X10*3/uL Abs Immat Gran (auto) 0.02 (0.00-0.03) X10*3/uL Absolute Neuts (auto) 3.4 (2.0-8.3) x10*3/uL Absolute Nucleated RBC 0.000 (0.0-0.012) X10*3/uL Nucleated RBC % (auto) 0.0 (0.0-0.2) /100WBC Sodium 141 (135-145) mmol/L Potassium 4.6 D (3.3-5.1) mmol/L Chloride 109 H (96-108) mmol/L Carbon Dioxide 22 (22-29) mmol/L Anion Gap 15 (12-20) BUN 14 (9-16) mg/dL Creatinine 0.71 (0.5-1.4) mg/dL Estim Creat Clear Calc 108.9 Estimated GFR > 60 Random Glucose 99 (60-115) mg/dL Calcium 9.3 (8.4-10.2) mg/dL Total Bilirubin 0.5 (0.0-1.0) mg/dL Direct Bilirubin 0.1 (0.0-0.5) mg/dL AST 13 (5-31) U/L ALT 8 (0-31) U/L Alkaline Phosphatase 56 (39-117) U/L Troponin I High Sens < 2.7 (<3.5-17.0) ng/L Total Protein 6.7 (6.5-8.0) g/dL Albumin 4.2 (3.5-5.0) g/dL Independent Interpretation I performed an independent interpretation of an: EKG Interpretation: Normal sinus rhythm, HR-64, no STEMI, IA/QRS/QTC is within normal limits. Discharge Plan Discharge Clinical Impression: Atypical chest pain Patient Disposition: Home, Self-Care Instructions: Chest Pain (ED) Additional Instructions: 1. Resume all home medications as prescribed. 2. Please follow-up with your primary care provider on Saturday morning. Return to the ER for any worsening symptoms. Prescriptions: No Action pravastatin 20 mg tablet 20 mg PO DAILY Qty: 90 3RF levothyroxine 100 mcg tablet 100 mcg PO DAILY Qty: 30 5RF finasteride 5 mg tablet 5 mg PO DAILY 90 Days Qty: 90 2RF metformin 500 mg tablet extended release 24 hr 500 mg PO BEDTIME Qty: 90 1RF clonazepam 0.5 mg Tablet 1 mg PO BEDTIME Rx Instructions: Administer 30 minutes before bedtime. Take 2 tablets at bedtime. bupropion HCl 150 mg tablet sustained-release 12 hr 150 mg PO BID cetirizine 10 mg tablet 10 mg PO QAM cholecalciferol (vitamin D3) 125 mcg (5,000 unit) capsule 125 mcg PO DAILY cyclobenzaprine [Flexeril] 5 mg Tablet 5 mg PO DAILY albuterol sulfate 2.5 mg /3 mL (0.083 %) solution for nebulization 3 ml inhalation QID PRN (Reason: Wheezing) albuterol sulfate 90 mcg/actuation HFA aerosol inhaler 2 puff PO Q4-6H PRN (Reason: Wheezing) fluticasone propionate 50 mcg/actuation spray,suspension 1 spray intranasal BID PRN (Reason: allergies) docusate sodium 100 mg capsule 100 mg PO BID risperidone 2 mg tablet 2 mg PO QAM risperidone 4 mg tablet 4 mg PO BEDTIME cyanocobalamin (vitamin B-12) 1,000 mcg tablet 1,000 mcg PO DAILY topiramate 50 mg tablet 50 mg PO DAILY venlafaxine 150 mg capsule,extended release 24hr 150 mg PO DAILY trazodone 50 mg tablet 100 mg PO BEDTIME Flovent HFA 220 mcg/actuation HFA aerosol inhaler 1 puff inhalation BID clonazepam 0.5 mg tablet 0.5 mg PO DAILY Referrals: Heidi Gomez MD [Primary Care Provider] -
[2022-10-19 20:59] LABS: MANUAL DIFF FLAG NO
[2022-10-19 21:01] LABS: Basophils Percent Auto 0.5 % (0-2); Eosinophils Absolute Auto 0.3 X10*3/uL (0.0-0.4); Eosinophils Percent Auto 4.8 % (0-4); Hematocrit 37.4 % (37.0-47.0); Hemoglobin 12.4 g/dl (12.0-16.0); Imm Gran Abs Auto 0.02 X10*3/uL (0.00-0.03); Imm Gran Pct Auto 0.3 % (0.0-0.4); Lymphocytes Absolute Auto 1.6 X10*3/uL (1.2-4.9); Lymphocytes Percent Auto 27.1 % (20-40); Mean Corpuscular HGB Conc 33.2 g/dl (31.0-35.0); Mean Corpuscular Hemoglobin 26.7 pg (27.0-33.0); Mean Corpuscular Volume 80.6 fL (80.0-98.0); Mean Platelet Volume 10.4 fL (9.4-12.3); Monocytes Absolute Auto 0.7 X10*3/uL (0.1-1.2); Monocytes Percent Auto 11.1 % (2-11); Neutrophils Absolute Auto 3.4 x10*3/uL (2.0-8.3); Neutrophils Percent Auto 56.2 % (45-73); Platelet Count 278 X10*3/uL (160-400); Red Blood Count 4.64 X10*6/uL (4.20-5.50); Red Cell Distribution Width 12.9 % (11.0-16.0)
[2022-10-19 21:19] LABS: Alanine Aminotransferase 8 U/L (0-31); Albumin Level 4.2 g/dL (3.5-5.0); Alkaline Phosphatase 56 U/L (39-117); Anion Gap 15 (12-20); Aspartate Amino Transferase 13 U/L (5-31); Bilirubin Direct 0.1 mg/dL (0.0-0.5); Bilirubin Total 0.5 mg/dL (0.0-1.0); Blood Urea Nitrogen 14 mg/dL (9-16); Calcium 9.3 mg/dL (8.4-10.2); Carbon Dioxide 22 mmol/L (22-29); Chloride 109 mmol/L (96-108); Creatinine Clr Calc Pharmacy 108.9; Estimated Glomerular Filt Rate > 60; Glucose Random 99 mg/dL (60-115); Potassium 4.6 mmol/L (3.3-5.1); Sodium 141 mmol/L (135-145); Total Protein 6.7 g/dL (6.5-8.0)
[2022-10-19 21:26] LABS: Troponin-I High Sensitivity < 2.7 ng/L (<3.5-17.0)
[2022-10-19] MEDS: Lidocaine HCl Viscous 2 % 15 ML SOLUTION 10 ML MUCOUS MEM (23:18)
[2022-10-19] MEDS: Magnesium Hydrox/Alum Hydrox 30 ML ORAL.SUSP PO (23:18)
[2022-10-19 23:22] VITALS: BP 108/57; PULSE 61; RESP 13; TEMP 36.7; O2SAT 99
[2022-10-20 00:08] LABS: Troponin-I High Sensitivity < 2.7 ng/L (<3.5-17.0)
== END 2022-10-20 00:39 | disposition home or self-care (01) ==
PROVIDERS: Physician Assistant Medical; Emergency Provider Student in an Organized Health Care Education/Training Program; PCP Family Medicine
DX: R07.89 Other chest pain (principal); M79.601 Pain in right arm; Z79.899 Other long term (current) drug therapy
CPT/HCPCS: 36415; 71046; 80048; 80076; 84484; 85025; 93005; 99283; 99285

== ENCOUNTER 2022-11-12 13:29 | Outpatient (REF) | payer OTHER, SELFPAY ==
--- NOTE | ~2022-11-12 | MR_ITS ---
EXAMINATION: MRI PELVIS WITH AND WITHOUT CONTRAST CLINICAL INFORMATION: Reason for Exam N83.299 - Other ovarian cyst, unspecified side COMPARISON: MR pelvis 09/04/2021 TECHNIQUE: Multiple routine MRI sequences through the pelvis were obtained before and after the uneventful administration of 7.5 mL of Gadavist gadolinium-based IV contrast. FINDINGS: UTERUS: Anteverted uterus has a borderline arcuate morphology. Endometrium is uniform and measures 0.2 cm in thickness. Junctional zone is normal in signal and thickness. No focal uterine mass seen. CERVIX: Unremarkable. VAGINA: Unremarkable. OVARIES: The right ovary is remarkable for a 3.1 cm T2 hypointense hypoenhancing mass and the left ovary is remarkable for a 2.7 cm T2 hypointense hypoenhancing mass, previously 3.1 cm and 2.7 cm respectively not significantly changed in size. KIDNEYS: Two normally positioned kidneys are seen. No hydronephrosis. BLADDER: Unremarkable. PELVIC FREE FLUID: Trace simple physiologic volume free fluid in the pelvis. LYMPH NODES: No pathologically enlarged lymph nodes. OSSEOUS STRUCTURES: No acute or suspicious osseous abnormalities. MR/MR pelvis wo/w con IMPRESSION: 1. No significant change in size of a 3.1 cm right ovarian mass and a 2.7 cm left ovarian mass, which may reflect a fibroma or fibrothecoma. 2. Uterus has a borderline arcuate morphology.
== END 2022-11-12 13:30 | disposition home or self-care (01) ==
LOC: HO.MRI 13:29
PROVIDERS: PCP Family Medicine; Visit Provider Obstetrics & Gynecology
DX: N83.299 Other ovarian cyst, unspecified side (principal)
CPT/HCPCS: 72197; A9585

== ENCOUNTER 2022-11-29 07:52 | Outpatient (REF) | payer OTHER, SELFPAY ==
--- NOTE | 2022-11-29 08:31 | P.BOP_ITS ---
Brief Operative Note Date of Service: 11/29/22 Pre-op diagnosis: Thyroid Nodule Procedure: EXAMINATION: US THYROID CLINICAL INFORMATION: Multinodular Thyroid COMPARISON: Prior TECHNIQUE: Linear transducer anaya-scale and color Doppler examination with attention to the region of the thyroid. FINDINGS: SIZE: Measurements of the thyroid lobes and nodules are given in sagittal, anteroposterior and transverse dimensions respectively. Right Thyroid Lobe: 1.4 x 3.4 x 1.4 cm, volume 3.4 mL. Parenchyma: The gland echotexture is heterogenous. Thyroid vascularity is normal. Left Thyroid Lobe: 1.0 x 2.3 x 0.7 cm, volume 0.9 mL. Parenchyma: The gland echotexture is heterogenous. Thyroid vascularity is normal. Isthmus: 0.3 cm in maximum AP dimension. RIGHT THYROID LOBE: There is 1 nodule. 1. Right mid pole: 1.3 x 1.5 x 1.2 cm, predominantly solid, isoechoic with a hypoechoic rind. Smooth, regular margins. No microcalcifications, and no intranodular flow. LEFT THYROID LOBE: There are no nodules. NODES: No lymphadenopathy is seen in the tissue surrounding the thyroid gland. IMPRESSION: Stable nodule visualized in the right mid pole. This was previously biopsied in 2019 when measuring 1.4 x 1.4 x 1.1 cm. No significant growth to warrant repeat FNA at this time. Surgeon: Rachel Bowen, DO Was an Sterile Preparation Technician used for this Procedure?: No Estimated blood loss (mL): 0
== END 2022-11-29 07:53 | disposition home or self-care (01) ==
LOC: HO.US 07:52
PROVIDERS: PCP Family Medicine; Visit Provider Internal Medicine Endocrinology, Diabetes & Metabolism
DX: E04.1 Nontoxic single thyroid nodule (principal); E89.0 Postprocedural hypothyroidism
CPT/HCPCS: 76536

== ENCOUNTER → 2022-11-29 07:52 | Outpatient (BNV) | payer OTHER, SELFPAY | PROVIDERS: PCP Family Medicine; Visit Provider Internal Medicine | DX: E04.2 Nontoxic multinodular goiter (principal) | CPT/HCPCS: 76536 ==

== ENCOUNTER 2022-12-05 09:45 | Outpatient (AMB) | payer OTHER, SELFPAY ==
[2022-12-05 10:01] VITALS: BP 110/62; BMI 30.7
--- NOTE | 2022-12-05 10:01 | MHC.OFFVIS ---
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 last mammo B1 07.05 MRI done recently showed the following: OVARIES: The right ovary is remarkable for a 3.1 cm T2 hypointense hypoenhancing mass and the left ovary is remarkable for a 2.7 cm T2 hypointense hypoenhancing mass, previously 3.1 cm and 2.7 cm respectively not significantly changed in size. Pelvic MRI in 09/01 showed the following: IMPRESSION: Both ovaries remain prominent, similar in appearance to the prior MRI 09/13/2016 and, given limitations from differences in technique, not convincingly changed from the noncontrast CT scan 03/28/2009. Within both ovaries there is a well-circumscribed T1 and T2 dark structure suggesting bilateral ovarian fibromas (O-RADS 2). The lack of interval change since 2017 is highly reassuring of a benign process. [facility] Medical History Anxiety and depression Asthma Bipolar disorder Dyslipidemia Hyperandrogenism Hypothyroidism Obesity (BMI 30-39.9) Ovarian cyst PCOS (polycystic ovarian syndrome) Sterilization Thyroid nodule Vitamin D deficiency Surgical History History of endometrial ablation History of lithotripsy History of surgical removal of skin lesion Hx of cholecystectomy Family History Father No problems noted. Mother Thyroid disease Maternal Grandmother Diabetes mellitus Social History Household Members: Children Household Members Other:: daughter Housing: Apartment Alcohol intake: never Patient Tobacco Use Status: Former Tobacco user Current occupational status: unemployed Sexual orientation: Straight/Heterosexual Gender identity: Female Female Reproductive History Menstrual Date of last menstrual period: 11/15/22 control method: pills Date of last pap smear: 05/30/22 (negative) History of abnormal pap smear: Yes Review of Systems Const All systems reviewed & are unremarkable except as noted in HPI and below Reports as per HPI and Reports no additional complaints GI Reports no additional complaints Reports no additional complaints Physical Exam Vital Signs: Last Vital Signs BP 110/62 12/05/22 10:01 BMI result Body Mass Index 30.7 Assessment & Plan Assessment & Plan (1) Complex ovarian cyst: Comment: sam Code(s): N83.299 - Other ovarian cyst, unspecified side Plan: Discussed with the patient the bilateral complex ovarian cyst by pelvic MRI. Discussed with the patient the Ultrasound findings, the main limitation of imaging alone as a diagnostic tool to distinguish benign from malignant masses relates to its lack of specificity and low positive predictive value for cancer. The differential diagnosis discussed with the patient includes the following but not limited to: benign and malignant gynecological and non-gynecological causes. Laboratory evaluation include serum tumor marker CA 125 . Discussed with the patient that CA 125 is a protein associated with epithelial ovarian malignancies, but also frequently expressed at lower levels by nonmalignant tissue. Elevation of CA 125 levels may occur in nonmalignant gynecologic conditions, and in non-gynecologic cancers, It is most useful in postmenopausal women and in identifying non mucinous epithelial cancer. The CA 125 level is elevated in 80% of patients with epithelial ovarian cancer but in only 50% of patients with stage I disease. The overall sensitivity of CA 125 testing in distinguishing benign from malignant adnexal masses reportedly ranges from 61% to 90%; discussed with the patient the specificity, positive predictive value and negative predictive value. Discussed with the patient options of treatment , in case CA 125 is not elevated, including laparoscopy ovarian cystectomy/oophorectomy vs. expectant management with imaging. If the ovarian complex cyst is persistent larger and / or more complex looking, or higher CA 125 will refer to gynecologic Oncology. All pros, cons, risks and benefits of each approach were discussed with the patient including but not limited to a delay in the diagnosis and treatment of ovarian cancer affecting the prognosis; The patient decided to think about and get back to us as soon as possible. All questions were answered & the patient verbalized understanding and agreed with the plan. Orders: Orders CA-125 Today N83.299 - Other ovarian cyst, unspecified side Coding Level of Care Code Est Pt Level 3 (82358) Diagnoses Complex ovarian cyst N83.299
== END 2022-12-05 10:30 | disposition home or self-care (01) ==
LOC: HO.HWS 09:45
PROVIDERS: PCP Family Medicine; Visit Provider Obstetrics & Gynecology
DX: N83.299 Other ovarian cyst, unspecified side (principal)
CPT/HCPCS: 99213

== ENCOUNTER 2022-12-05 09:45 | Outpatient (REF) | payer OTHER, SELFPAY ==
[2022-12-07 11:54] LABS: CA-125 9 U/mL (<35)
== END 2022-12-05 09:46 | disposition home or self-care (01) ==
LOC: HO.LAB 09:45
PROVIDERS: PCP Family Medicine; Visit Provider Obstetrics & Gynecology
DX: N83.299 Other ovarian cyst, unspecified side (principal)
CPT/HCPCS: 36415; 86304; 99212

== ENCOUNTER 2022-12-19 11:01 | Outpatient (REF) | payer OTHER, SELFPAY ==
[2022-12-19 12:46] LABS: Free T4 (Free Thyroxine) 1.19 ng/dL (0.71-1.85); Thyroid Stimulating Hormone 0.42 uIU/mL (0.32-4.0)
== END 2022-12-19 11:02 | disposition home or self-care (01) ==
LOC: HO.LAB 11:01
PROVIDERS: PCP Family Medicine; Visit Provider Internal Medicine Endocrinology, Diabetes & Metabolism
DX: E89.0 Postprocedural hypothyroidism (principal)
CPT/HCPCS: 36415; 84439; 84443

== ENCOUNTER 2023-03-20 10:32 | Outpatient (AMB) | payer OTHER, SELFPAY ==
--- NOTE | 2023-03-20 10:35 | MHC.OFFVIS ---
Intake Vital Signs 03/20/23 10:36 Height 5 ft 6 in Weight 179 lb 7.3 oz BMI 29.0 BP 100/64 Blood Pressure Location Lt brachial Position Sitting Pulse 72 Pulse Source Pulse Oximeter Intake Visit Reasons: f/u hypothyroidism Intake Note: Patient present for Hypothyroidism follow up visit. Chemical Laboratory Technician Required: No Accompanied by: Self / Same As Patient Allergies seasonal allergies Allergy (Unknown, Uncoded 12/05/22 10:02) Nasal congestion HPI HPI Comments History of Present Illness Details 47 YO Female with a PMHx elevated Testosterone and a complex appearing L ovarian cyst as well as MNG and hypothyroidism who is seen in F/U. It appears she had elevated Testosterone and irregular menses in the past, and was told she has PCOS. She was started on a low androgenic profile OCP, Metformin 500 mg PO daily, Finasteride and most recently Spironolactone. She developed headache with orthostatic hypotension after the spironolactone was started, and presented to the ED 12/12/2020 due to this. The spironolactone was stopped and she was asked to F/U with her Immigration Investigator.However back on spironolactone She is seen today in F/U. Review of her records reveals back in 2016 she had an US of the ovaries which revealed a solid mass within the R ovary, and a 2.0 cm simple cyst within the L ovary. She is followed by filer and sander underwent endometrial ablation It does not appear she has ever undergone dedicated adrenal imaging. However, 1 mg dexamethasone suppression test was normal Labs show elevated Total and Free Testosterone, but it appears this was checked while on spironolactone. Labs repeated off of Spironolactone are completely WNL. Has spotting each mo is followed by filer and sander She also has a history of a multinodular thyroid, and underwent FNA biposy of her RMP 1.4 cm thyroid nodule 08/29/2018 and this was benign. She had a repeat US 06/2020 which was unchanged. She has a history of Grave's disease and underwent treatment with GOULD 16.37 mCi of I 131 on 10/[address] Sanchez. She subsequently developed hypothyroidism, and remains on Levothyroxine [address] Abdomen 02/01/2021: FINDINGS: LUNG BASES: Normal. No pulmonary consolidation or pleural effusion at either lung base.? LIVER: The liver has normal size, shape, and attenuation.? No evidence of liver mass. GALLBLADDER AND BILIARY TREE: Gallbladder is surgically absent. No bile duct dilatation.? PANCREAS: Normal. No edema, pancreatic ductal dilatation or mass.? SPLEEN: Normal.? ADRENAL GLANDS: Normal.? KIDNEYS AND URETERS: The kidneys have normal size and cortical thickness. No mass or perinephric fluid collection. No urolithiasis or hydroureteronephrosis. BOWEL AND PERITONEUM: Stomach is unremarkable. No dilated loops of bowel. No bowel wall thickening or mesenteric fat stranding. No ascites or pneumoperitoneum. ABDOMINAL WALL: Unremarkable.? VASCULATURE: Abdominal aorta is normal in caliber. The celiac trunk, SMA, HARRIS and renal arteries are widely patent. Inferior vena cava and renal veins are normal. LYMPH NODES: No pathologic sized lymph nodes. SKELETAL: No suspicious bone lesions. The visualized lower thoracic and lumbar vertebra have normal height and alignment. Osteophytes and enthesophytes are noted at multiple levels. There are a few foci of posterior longitudinal ossification of the visualized spine.? CT/CT abdomen wo/w con IMPRESSION: Multiphase contrast-enhanced examination of the abdomen shows normal adrenal glands. No adrenal nodule or retroperitoneal mass. Labs: Laboratory Tests 01/07/21 01/07/21 01/07/21 08:40 08:40 08:40 Creatinine 0.72 Estimated GFR > 60 Hemoglobin A1c % 5.0 Glucose Tolerance 25-OH Vitamin D To brissa 65.3 TSH 0.69 Free T4 1.09 Free Estradiol Total Estradiol FSH Luteinizing Hormon e Prolactin Total Testosterone Fr Testosterone Di nelson Sex Hormone Bind G lob Androstenedione DHEA Sulfate Beta HCG, Quant < 2 Cortisol Baseline Cortisol 30 Minute Cortisol 60 Minute 01/07/21 01/25/21 08:40 09:13 Creatinine Estimated GFR Hemoglobin A1c % Glucose Tolerance 25-OH Vitamin D To brissa TSH Free T4 Free Estradiol 0.89 Total Estradiol 54 FSH 10.0 Luteinizing Hormon e 4.2 Prolactin 13.4 Total Testosterone 21 Fr Testosterone Di nelson 1.6 Sex Hormone Bind G lob 105 Androstenedione 51 DHEA Sulfate 24 Beta HCG, Quant Cortisol Baseline 5.9 Cortisol 30 Minute 24.3 Cortisol 60 Minute 28.1 Ovarian US 09/03/2016: The right ovary measures 3.1 x 4.4 x 2.9 cm for a volume of 2.1 mL. Previously, this measured 5.0 x 3.0 x 3.4 cm. There is a 2.4 x 1.5 x 1.4 cm heterogeneous area of increased echogenicity within the right ovary which represents a solid mass. There is no calcification. This does not have the classic features of a dermoid tumor. Further evaluation is recommended with MRI to exclude a solid mass such as a malignancy. The left measures 4.5 x 4.2 x 3.2 cm for a volume of 3.1 mL. Previously, this measured 4.0 x 2.8 x 3.4 cm. There is an anechoic, nonnodular, noncalcified, thin-walled, simple cysts measuring 1.6 x 1.9 x 2.0 cm. There is no pelvic free fluid. 12/08/21 FINDINGS: ? SIZE: Measurements of the thyroid lobes and nodules are given in sagittal, anteroposterior and transverse dimensions respectively. Right Thyroid Lobe: 4.0 x 1.4 x 1.6 cm, volume 4.5 mL. Previously 2.9 x 1.4 x 1.4 cm, volume 3.1 mL. Parenchyma: The gland echotexture is homogeneous. Thyroid vascularity is normal. Left Thyroid Lobe: 2.5 x 0.9 x 1.3 cm, volume 1.6 mL. Previously 2.0 x 0.9 x 1.0 cm, volume 0.9 mL. Parenchyma: The gland echotexture is homogeneous. Thyroid vascularity is normal. Isthmus: 0.2 cm in maximum AP dimension. Previously 0.3 cm. Estimated total number of nodules greater than or equal to 1 cm: 1. Section Plotter Operator nodules are described as follows: 1.? Location: Right mid. ?? ? Size: 1.3 x 1.5 x 1.2 cm, volume 1.3 mL. ?? ? Previously: 1.6 x 1.3 x 1.1 cm, volume 1.1 mL. ?? ? Nodule characteristics: ?? ? Composition: Solid (2). ?? ? Echogenicity: Isoechoic (1). ?? ? Shape: Taller than wide (3). ?? ? Margins: Smooth (0). ?? ? Echogenic Foci: None (0).? ACR TI-RADS total points: 6 Previous: 3 ?? ? ACR TI-RADS category: 4 Previous: 3 ? Significant change in size (>/= 20% in 2 dimensions and minimal increase of 2 mm or 50% or greater increase in volume): No ?? ? Change in features: Yes, the nodule is now slightly taller than wide. On recent prior the nodule was as tall as wide however in 2021 nodule appear to be taller than wide. ?? ? Change in ACR TI-RADS risk category: Yes NODES: No lymphadenopathy is seen in the tissue surrounding the thyroid gland. US/US thyroid IMPRESSION: ? A 1.5 cm right mid thyroid nodule is not significantly changed in size. This nodule appears taller than wide on today's exam, TI RADS 4, which is similar to 2020 however the measurements on the most recent prior were as tall as wide (TI RADS 3). This nodule meets criteria for tissue sampling and was previously sampled in 2019. Recommend correlation with prior pathology. Patient was sent for possible FNA of right midpole nodule with the nodule was felt to be stable in size and not biopsied by Dr. Glover [facility] Medical History Anxiety and depression Asthma Bipolar disorder Dyslipidemia Hyperandrogenism Hypothyroidism Obesity (BMI 30-39.9) Ovarian cyst PCOS (polycystic ovarian syndrome) Sterilization Thyroid nodule Vitamin D deficiency Surgical History History of endometrial ablation History of lithotripsy History of surgical removal of skin lesion Hx of cholecystectomy Family History Father No problems noted. Mother Thyroid disease Maternal Grandmother Diabetes mellitus Social History Household Members: Children Household Members Other:: daughter Housing: Apartment Alcohol intake: never Patient Tobacco Use Status: Former Tobacco user Current occupational status: unemployed Sexual orientation: Straight/Heterosexual Gender identity: Female Physical Exam Vital Signs: Last Vital Signs Pulse 72 03/20/23 10:36 BP 100/64 03/20/23 10:36 BMI result Body Mass Index 29.0 Const Other: Thyroid gland is normal size weighs by 15 g . No thyroid nodules palpated. There is a minimal amount of hair growth present on the facial region Assessment & Plan Assessment & Plan (1) PCOS (polycystic ovarian syndrome): Code(s): E28.2 - Polycystic ovarian syndrome Plan: 47-year-old female with a history of PCOS currently being treated with control pill, metformin and spironolactone. Plan is to continue present therapy with metformin, spironolactone and finasteride as well as the norethindrone BCP with filer and sander. At this point, patient returned to the care of her primary care provider and OBGYN for follow-up (2) Thyroid nodule: Code(s): E04.1 - Nontoxic single thyroid nodule Plan: Status post FNA of a right midpole nodule with benign cytology. Appears to be clinically euthyroid. Recent thyroid ultrasound showed no change in the characteristics of the right nodule Plan is to send the patient back to primary care provider who can check a repeat thyroid ultrasound about 2-3 years (3) Hypothyroidism: Code(s): E03.9 - Hypothyroidism, unspecified Qualifiers: Hypothyroidism type: postablative Qualified Code(s): E89.0 - Postprocedural hypothyroidism Plan: Clinically euthyroid on 112 mcg of levothyroxine . Plan is to continue current management. Primary care provider can recheck TSH and follow every 6 months to 1 year's time. 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
[2023-03-20 10:36] VITALS: BP 100/64; PULSE 72; BMI 29.0
== END 2023-03-20 10:51 | disposition home or self-care (01) ==
PROVIDERS: PCP Family Medicine; Visit Provider Internal Medicine Endocrinology, Diabetes & Metabolism
DX: E28.2 Polycystic ovarian syndrome (principal); E04.1 Nontoxic single thyroid nodule; E89.0 Postprocedural hypothyroidism
CPT/HCPCS: 99213

== ENCOUNTER → 2023-03-20 10:32 | Outpatient (BNVA) | payer OTHER, SELFPAY | PROVIDERS: PCP Family Medicine; Visit Provider Internal Medicine Endocrinology, Diabetes & Metabolism | DX: E28.2 Polycystic ovarian syndrome (principal); E04.1 Nontoxic single thyroid nodule; E89.0 Postprocedural hypothyroidism | CPT/HCPCS: 99212 ==

== ENCOUNTER 2023-06-11 15:26 | Emergency (ER) | payer OTHER, SELFPAY ==
--- NOTE | ~2023-06-11 | CT_ITS ---
EXAMINATION: CT HEAD WITHOUT CONTRAST CLINICAL INFORMATION: Headache COMPARISON: None available. TECHNIQUE: Contiguous axial imaging was performed from the skull base to vertex without intravenous administration of contrast. This CT examination was performed using dose optimization techniques as appropriate, variously including the following: *Automated exposure control *Adjustment of mA and/or kV according to patient size (this includes techniques or standardized protocols for targeted exams where dose is matched to indication/reason for exam; i.e. extremities or head) *Use of iterative reconstruction technique DLP: 700 mGy-cm FINDINGS: There is no acute intra-axial, extra-axial bleed, masses, collection or midline shift. There is no acute infarction evolution. There is no edema. The anaya to white matter difference is maintained normal. No abnormality seen in the posterior fossa. Bone windows reveal mucoperiosteal thickening bilateral maxillary and right sphenoid sinuses. The mastoid sinuses and rest of the paranasal sinuses are clear. CT/CT head/brain wo IV con IMPRESSION: 1. No acute intracranial process seen. 2. Chronic bilateral maxillary sinus inflammatory changes.
[2023-06-11 15:31] VITALS: BP 116/71; PULSE 91; RESP 16; TEMP 37.1; O2SAT 96; BMI 28.2
--- NOTE | 2023-06-11 15:34 | ED.GENADULT ---
HPI - General Adult General Chief complaint: Neuro Symptoms/Deficit Stated complaint: headache confusion bilat hand numbness numb mouth Time Seen by Provider: 06/11/23 23:14 Source: patient Mode of arrival: ambulatory Limitations: no limitations History of Present Illness HPI narrative: Patient history of anxiety , bipolar disorder complaining of headache for last 3 days is generalized earlier today while driving home she forgot how to reach home and had to use GPS also she was not sure how to use washing machine feels foggy in her mind also complaining of tingling and numbness in bilateral hands which is going on for last 2 weeks no neck pain no back pain no his speech problem or focal deficits Related Data Home Medications Medication Instructions Recorded Confirmed cyanocobalamin (vitamin B-12) 1,000 mcg PO DAILY 07/06/20 08/14/22 1,000 mcg tablet docusate sodium 100 mg capsule 100 mg PO BID 07/06/20 08/14/22 risperidone 2 mg tablet 2 mg PO QAM 07/06/20 08/14/22 risperidone 4 mg tablet 4 mg PO BEDTIME 07/06/20 08/14/22 topiramate 50 mg tablet 50 mg PO DAILY 07/06/20 08/14/22 trazodone 50 mg tablet 100 mg PO BEDTIME 07/06/20 08/14/22 venlafaxine 150 mg 150 mg PO DAILY 07/06/20 08/14/22 capsule,extended release 24 hr fluticasone propionate 220 1 puff inhalation BID 12/19/20 08/14/22 mcg/actuation HFA aerosol inhaler (Flovent HFA) albuterol sulfate 2.5 mg/3 mL 3 ml inhalation QID PRN Wheezing 06/23/21 08/14/22 (0.083 %) solution for nebulization albuterol sulfate 90 mcg/actuation 2 puff PO Q4-6H PRN Wheezing 06/23/21 08/14/22 aerosol inhaler fluticasone propionate 50 1 spray intranasal BID PRN 06/23/21 08/14/22 mcg/actuation nasal allergies spray,suspension clonazepam 0.5 mg tablet 0.5 mg PO DAILY 05/30/22 08/14/22 bupropion HCl 150 mg tablet,12 hr 150 mg PO BID 08/14/22 08/14/22 sustained-release cetirizine 10 mg tablet 10 mg PO QAM 08/14/22 08/14/22 cholecalciferol (vitamin D3) 125 125 mcg PO DAILY 08/14/22 08/14/22 mcg (5,000 unit) capsule clonazepam 0.5 mg tablet 1 mg PO BEDTIME 08/14/22 08/14/22 cyclobenzaprine 5 mg tablet 5 mg PO DAILY 08/14/22 08/14/22 cyclobenzaprine 5 mg tablet 5 mg PO TID PRN 12/05/22 norethindrone (contraceptive) 0.35 0.35 mg PO QAM 12/05/22 mg tablet venlafaxine 37.5 mg 37.5 mg PO DAILY 12/05/22 capsule,extended release 24 hr Previous Rx's Medication Instructions Recorded pravastatin 20 mg tablet 20 mg PO DAILY #90 tabs 03/15/22 finasteride 5 mg tablet 5 mg PO DAILY 90 days #90 tabs 08/17/22 metformin 500 mg tablet,extended 500 mg PO BEDTIME #90 tabs 09/11/22 release 24 hr levothyroxine 100 mcg tablet 100 mcg PO DAILY #30 tabs 12/18/22 woobcggbsx-krzsrpjyzanmr-wvkgydto 1 tab PO Q6H PRN haeadace #20 tabs 06/11/23 50 mg-325 mg-40 mg tablet Allergies Allergy/AdvReac Type Severity Reaction Status Date / Time seasonal allergies Allergy Unknown Nasal Uncoded 06/11/23 15:31 congestion Review of Systems Review of Systems: Yes all other systems are reviewed and are negative [facility] Past Medical History Medical History Anxiety and depression Asthma Sterilization Ovarian cyst Hyperandrogenism Bipolar disorder Dyslipidemia Vitamin D deficiency Obesity (BMI 30-39.9) Thyroid nodule Hypothyroidism PCOS (polycystic ovarian syndrome) Surgical History History of lithotripsy Hx of cholecystectomy History of endometrial ablation History of surgical removal of skin lesion Family History Family History Father No problems noted. Mother Thyroid disease Maternal Grandmother Diabetes mellitus Social History Social History Household Members: Children Household Members Other:: daughter Housing: Apartment Alcohol intake: never Patient Tobacco Use Status: Former Tobacco user Smoked in Last 30 Days: No Use of substances other than those prescribed or required for medical reasons: No Advance Directives: No Advance Directives Information Provided: No Patient : No Current occupational status: unemployed Sexual orientation: Straight/Heterosexual Gender identity: Female Physical Exam ED Vital Signs: Vital Signs - 24 hr 06/11/23 15:31 06/11/23 18:19 06/11/23 22:37 Temperature 98.7 F 97.9 F 97 F Pulse Rate 91 70 60 Respiratory Rate 16 18 18 Blood Pressure 116/71 108/78 99/56 L Pulse Oximetry 96 98 99 Oxygen Delivery Method Room Air Room Air Room Air BMI result Body Mass Index 28.2 Appearance: Alert. Oriented X3. No acute distress. Eyes: PERRLA, No Nystagmus ENT: Pharynx normal. Oral Mucosa moist Neck: Normal inspection. Neck supple. CVS: Normal heart rate and rhythm. Pulses normal. Respiratory: No respiratory distress. Equal air entry bilateral, no wheezing/rales/rhonchi Abdomen: Soft and nontender. Bowel sounds are present, no mass palpable, no CVA tenderness Skin: Skin warm and dry. Normal skin color. Normal skin turgor. Extremities: No lower extremity edema. No calf tenderness Neuro: Oriented X 3. No motor deficit. No sensory deficit.No cerebellar signs , cranial nerves II-XII intact Course Course Course Narrative: RME- 48-year-old female presents for evaluation of headache for the last [address] brain, labs Medications Administered Discontinued Medications Generic Name Dose Route Start Last Admin Trade Name Charlie PRN Reason Stop Dose Admin Acetaminophen 650 mg 06/11/23 18:18 06/11/23 18:22 Acetaminophen 325 Mg Tablet PO 06/11/23 18:19 650 mg ONCE ONE Administration Acetaminophen/Butalbital/Caffeine 1 tab 06/11/23 23:52 06/12/23 00:37 Butalb/Acetamin/Caff 50/325/40 Tablet PO 06/11/23 23:53 1 tab ONCE ONE Administration Ondansetron HCl 4 mg 06/11/23 18:18 06/11/23 18:22 Ondansetron Odt 4 Mg Tab.Rapdis TRANSLINGU 06/11/23 18:19 4 mg ONCE ONE Administration Medical Decision Making Medical Decision Making [facility] Narrative: Patient's transient amnesia confusion with increased anxiety and bipolar disorder on examination patient does not have any focal deficit walking in steady gait CT scan of the head negative for acute also complaining of bilateral hand numbness with does not make much sense at this time as all the modalities are absent in the wrist down including touch temperature pinprick. No signs of carpal tunnel syndrome will give her Imitrex Fioricet possible she hasconversion syndrome. Patient advised to follow with neurologist Differential Diagnosis Differential Diagnoses: The differential diagnosis associated with the presentation includes Anxiety/global amnesia/bipolar disorder Lab Data [facility] Lab Attestation statement: I reviewed the patient's lab results. 06/11/23 18:31 06/11/23 18:31 Labs: Lab Results 06/11/23 Range/Units 18:31 WBC 6.9 (4.8-10.8) X10*3/uL RBC 4.61 (4.20-5.50) X10*6/uL Hgb 12.3 (12.0-16.0) g/dl Hct 37.4 (37.0-47.0) % MCV 81.1 (80.0-98.0) fL MCH 26.7 L (27.0-33.0) pg MCHC 32.9 (31.0-35.0) g/dl RDW 12.7 (11.0-16.0) % Plt Count 297 (160-400) X10*3/uL MPV 10.5 (9.4-12.3) fL Immature Gran % (Auto) 0.3 (0.0-0.4) % Neut % (Auto) 59.6 (45-73) % Lymph % (Auto) 24.6 (20-40) % Sac % (Auto) 12.6 H (2-11) % Eos % (Auto) 2.6 (0-4) % Baso % (Auto) 0.3 (0-2) % Lymph # (Auto) 1.7 (1.2-4.9) X10*3/uL Sac # (Auto) 0.9 (0.1-1.2) X10*3/uL Eos # (Auto) 0.2 (0.0-0.4) X10*3/uL Baso # (Auto) 0.0 (0.0-0.2) X10*3/uL Abs Immat Gran (auto) 0.02 (0.00-0.03) X10*3/uL Absolute Neuts (auto) 4.1 (2.0-8.3) x10*3/uL Absolute Nucleated RBC 0.000 (0.0-0.012) X10*3/uL Nucleated RBC % (auto) 0.0 (0.0-0.2) /100WBC ESR 7 (0-20) MM/HR Sodium 141 (135-145) mmol/L Potassium 4.1 (3.3-5.1) mmol/L Chloride 106 (96-108) mmol/L Carbon Dioxide 26 (22-29) mmol/L Anion Gap 13 (12-20) BUN 14 (9-16) mg/dL Creatinine 0.70 (0.5-1.4) mg/dL Estim Creat Clear Calc 104.5 Estimated GFR > 60 Random Glucose 70 (60-115) mg/dL Calcium 10.0 D (8.4-10.2) mg/dL Total Bilirubin 0.4 (0.0-1.0) mg/dL AST 12 (5-31) U/L ALT 10 (0-31) U/L Alkaline Phosphatase 73 (39-117) U/L Total Protein 7.2 (6.5-8.0) g/dL Albumin 4.1 (3.5-5.0) g/dL Lipase 30 (8-78) U/L COVID-19 (ZENA) Negative (Negative) COVID-19 Clin Com See Note Influenza Type A (YAMILA) Negative (Negative) Influenza Type B (YAMILA) Negative (Negative) Influenza A & B Note See Note Discharge Plan Discharge Clinical Impression: TGA (transient global amnesia), Paresthesia Patient Disposition: Home, Self-Care Instructions: Migraine Headache (ED), Paresthesia (ED), Transient Global Amnesia (ED) Additional Instructions: Sleep well and continue to take medication for your anxiety Symptoms likely from global amnesiawhich will slowly get improved Follow-up with neurologist Hilda for headache Prescriptions: New lgfeoppkxn-zsyiivfhnyqcy-korq 50-325-40 mg tablet 1 tab PO Q6H PRN (Reason: haeadace) Qty: 20 0RF No Action pravastatin 20 mg tablet 20 mg PO DAILY Qty: 90 3RF finasteride 5 mg tablet 5 mg PO DAILY 90 Days Qty: 90 2RF metformin 500 mg tablet extended release 24 hr 500 mg PO BEDTIME Qty: 90 1RF levothyroxine 100 mcg tablet 100 mcg PO DAILY Qty: 30 5RF clonazepam 0.5 mg Tablet 1 mg PO BEDTIME Rx Instructions: Administer 30 minutes before bedtime. Take 2 tablets at bedtime. bupropion HCl 150 mg tablet sustained-release 12 hr 150 mg PO BID cetirizine 10 mg tablet 10 mg PO QAM cholecalciferol (vitamin D3) 125 mcg (5,000 unit) capsule 125 mcg PO DAILY cyclobenzaprine [Flexeril] 5 mg Tablet 5 mg PO DAILY albuterol sulfate 2.5 mg /3 mL (0.083 %) solution for nebulization 3 ml inhalation QID PRN (Reason: Wheezing) albuterol sulfate 90 mcg/actuation HFA aerosol inhaler 2 puff PO Q4-6H PRN (Reason: Wheezing) fluticasone propionate 50 mcg/actuation spray,suspension 1 spray intranasal BID PRN (Reason: allergies) docusate sodium 100 mg capsule 100 mg PO BID risperidone 2 mg tablet 2 mg PO QAM risperidone 4 mg tablet 4 mg PO BEDTIME cyanocobalamin (vitamin B-12) 1,000 mcg tablet 1,000 mcg PO DAILY topiramate 50 mg tablet 50 mg PO DAILY venlafaxine 150 mg capsule,extended release 24hr 150 mg PO DAILY trazodone 50 mg tablet 100 mg PO BEDTIME Flovent HFA 220 mcg/actuation HFA aerosol inhaler 1 puff inhalation BID clonazepam 0.5 mg tablet 0.5 mg PO DAILY venlafaxine 37.5 mg capsule,extended release 24hr 37.5 mg PO DAILY norethindrone (contraceptive) 0.35 mg tablet 0.35 mg PO QAM cyclobenzaprine 5 mg tablet 5 mg PO TID PRN Referrals: Rupali Spear MD [Physician] - 1 week Interventions: ED Discharge Assessment Last Done: 06/12/23 00:40 Discharge Date/Time: 06/12/23 00:40
[2023-06-11 18:19] VITALS: BP 108/78; PULSE 70; RESP 18; TEMP 36.6; O2SAT 98
[2023-06-11] MEDS: Acetaminophen 325 MG TABLET 650 MG PO (18:22)
[2023-06-11] MEDS: Ondansetron ODT 4 MG TAB.RAPDIS TRANSLINGU (18:22)
[2023-06-11 18:38] LABS: MANUAL DIFF FLAG NO
[2023-06-11 18:41] LABS: Basophils Percent Auto 0.3 % (0-2); Eosinophils Absolute Auto 0.2 X10*3/uL (0.0-0.4); Eosinophils Percent Auto 2.6 % (0-4); Hematocrit 37.4 % (37.0-47.0); Hemoglobin 12.3 g/dl (12.0-16.0); Imm Gran Abs Auto 0.02 X10*3/uL (0.00-0.03); Imm Gran Pct Auto 0.3 % (0.0-0.4); Lymphocytes Absolute Auto 1.7 X10*3/uL (1.2-4.9); Lymphocytes Percent Auto 24.6 % (20-40); Mean Corpuscular HGB Conc 32.9 g/dl (31.0-35.0); Mean Corpuscular Hemoglobin 26.7 pg (27.0-33.0); Mean Corpuscular Volume 81.1 fL (80.0-98.0); Mean Platelet Volume 10.5 fL (9.4-12.3); Monocytes Absolute Auto 0.9 X10*3/uL (0.1-1.2); Monocytes Percent Auto 12.6 % (2-11); Neutrophils Absolute Auto 4.1 x10*3/uL (2.0-8.3); Neutrophils Percent Auto 59.6 % (45-73); Platelet Count 297 X10*3/uL (160-400); Red Blood Count 4.61 X10*6/uL (4.20-5.50); Red Cell Distribution Width 12.7 % (11.0-16.0); White Blood Count 6.9 X10*3/uL (4.8-10.8)
[2023-06-11 18:53] LABS: Alanine Aminotransferase 10 U/L (0-31); Albumin Level 4.1 g/dL (3.5-5.0); Alkaline Phosphatase 73 U/L (39-117); Anion Gap 13 (12-20); Aspartate Amino Transferase 12 U/L (5-31); Bilirubin Total 0.4 mg/dL (0.0-1.0); Blood Urea Nitrogen 14 mg/dL (9-16); Carbon Dioxide 26 mmol/L (22-29); Chloride 106 mmol/L (96-108); Creatinine Clr Calc Pharmacy 104.5; Estimated Glomerular Filt Rate > 60; Glucose Random 70 mg/dL (60-115); Lipase 30 U/L (8-78); Potassium 4.1 mmol/L (3.3-5.1); Sodium 141 mmol/L (135-145); Total Protein 7.2 g/dL (6.5-8.0)
[2023-06-11 18:55] LABS: COVID-19 Test Negative (Negative); IDNOW Serial# 55D5AD1C
[2023-06-11 18:56] LABS: IDNOW Serial# 16C4AD1C; Influenza A Negative (Negative); Influenza B2 Negative (Negative)
[2023-06-11 19:19] LABS: Erythrocyte Sedimentation Rate 7 MM/HR (0-20)
[2023-06-11 22:37] VITALS: BP 99/56; PULSE 60; RESP 18; TEMP 36.1; O2SAT 99
[2023-06-12] MEDS: Butalb/Acetamin/Caff 50/325/40 TABLET 1 TAB PO (00:37)
--- NOTE | 2023-06-12 00:38 | PC.NURSE ---
Reviewed discharge instructions with pt, pt verbalized understanding. medicated at discharge. No sign of distress. no sob or chest pain, pt has a steady gait.
== END 2023-06-12 00:40 | disposition home or self-care (01) ==
PROVIDERS: Physician Assistant; Emergency Provider Internal Medicine; PCP Family Medicine
DX: G45.4 Transient global amnesia (principal); R51.9 Headache, unspecified; R41.0 Disorientation, unspecified; R20.2 Paresthesia of skin; Z11.52 Encounter for screening for COVID-19; Z79.899 Other long term (current) drug therapy
CPT/HCPCS: 36415; 70450; 80053; 83690; 85025; 85652; 87502; 87635; 99284

== ENCOUNTER 2023-07-30 10:29 | Outpatient (REF) | payer OTHER, SELFPAY | END 2023-07-30 10:30 | disposition home or self-care (01) | LOC: HO.MAMMO 10:29 | PROVIDERS: PCP Family Medicine; Visit Provider Family Medicine | DX: Z12.31 Encounter for screening mammogram for malignant neoplasm of breast (principal) | CPT/HCPCS: 77063; 77067 ==

== ENCOUNTER → 2023-07-30 11:30 | Outpatient (BNV) | payer OTHER, SELFPAY | PROVIDERS: PCP Family Medicine; Visit Provider Radiology Diagnostic Radiology | DX: Z12.31 Encounter for screening mammogram for malignant neoplasm of breast (principal) | CPT/HCPCS: 77063; 77067 ==

== ENCOUNTER 2023-12-05 13:57 | Outpatient (AMB) | payer OTHER, SELFPAY ==
[2023-12-05 13:59] VITALS: BP 98/66; BMI 27.0
--- NOTE | 2023-12-05 13:59 | A.OFFVIS_ITS ---
Vital Signs 12/05/23 13:59 Height 5 ft 6 in Weight 167 lb BMI 27.0 BP 98/66 Intake Visit Reasons: [employer] annual exam/DO NOT RS x2 Laser/Electro Optics Technician Required: Yes Laser/Electro Optics Technician Language: Safety Net Maker Services: Laser/Electro Optics Technician Present (in person) Laser/Electro Optics Technician Name: Kierra BOLAND Information Interpreted: non-clinical & clinical Pipe Assembly Worker: Pipe Assembly Worker Present (Kierra Goldenero KYA) Accompanied by: Self / Same As Patient Allergies seasonal allergies Allergy (Unknown, Uncoded 12/05/23 14:04) Nasal congestion Is last menstrual period known: No (hysterectomy) HPI Comments Details: Presenting for annual exam. No complaints. Last Pap/HPV was negative in 06/04, this was preceded by LSIL followed by colpo/biopsy/ECC which showed KRUPA 1 in 05/02, the patient had hysterectomy in 05/04 Last Mammogram was BI-RADS 1 in 08/03 Last colonoscopy was in 03/03, the recommendation was to repeat in 10 years [facility] Medical History (Updated 12/05/23 @ 14:05 by Aris Abrams MD) Anxiety and depression Asthma Sterilization Ovarian cyst Hyperandrogenism Bipolar disorder Dyslipidemia Vitamin D deficiency Obesity (BMI 30-39.9) Thyroid nodule Hypothyroidism PCOS (polycystic ovarian syndrome) Surgical History (Updated 12/05/23 @ 14:05 by Kierra Leiva CMA) Hx of hysterectomy History of lithotripsy Hx of cholecystectomy History of endometrial ablation History of surgical removal of skin lesion Family History Father No problems noted. Mother Thyroid disease Maternal Grandmother Diabetes mellitus Social History Household Members: Children Household Members Other:: daughter Housing: Apartment Alcohol intake: never Patient Tobacco Use Status: Former Tobacco user Current occupational status: unemployed Sexual orientation: Straight/Heterosexual Gender identity: Female Female Reproductive History Menstrual Menopause type: surgical Total pregnancies: 1 Full term: 1 Number of Living Children: 1 Date of last pap smear: 05/30/22 Date of Mammogram: 07/30/23 Review of Systems Const All systems reviewed & are unremarkable except as noted in HPI and below Card Reports as per HPI Resp Reports as per HPI GI Reports as per HPI and Reports no additional complaints Reports as per HPI Physical Exam Const General: cooperative, healthy appearing and comfortable Chest Chest palpation & inspection: normal inspection of the chest and normal palpation of entire chest wall Breast/axilla inspection: normal inspection of the breasts and normal inspection of the axillae Breast/axilla palpation: normal palpation of the breasts, normal palpation of the axillae and no axillary lymphadenopathy Resp Effort & Inspection: normal respiratory effort Auscultation: clear to auscultation bilaterally Percussion: percussion normal Cardio Palpation: normal PMI Rate: regular rate Rhythm: regular rhythm Heart sounds: no murmurs and no rubs Peripheral pulses: Peripheral pulses 2+ throughout GI Inspection: Yes normal to inspection Palpation (GI): Soft to palpation, nontender, no guarding, not rigid and No hepatosplenomegaly present Percussion: Yes normal to percussion Auscultation: normal bowel sounds Rectal Exam - Female: deferred External Female Exam: No lesion Speculum Exam - Vagina: normal appearance of the vagina, normal vaginal discharge and not erythematous Speculum Exam - Cervix: Cervix absent Bimanual exam- vagina & uterus: uterus absent Bimanual Exam- Adnexa, other: normal adnexae, no masses and no tenderness Assessment & Plan Assessment & Plan (1) Well woman exam: Comment: KRUPA 1 in 05/02 followed by negative co testing in 06/04 Code(s): Z01.419 - Encounter for gynecological examination (general) (routine) without abnormal findings Category: Medical Plan: Cotesting not indicated. Instructions given to patient to schedule next screening Mammogram in 08/04. Counseled the patient about the recommended dietary allowance of 1000 mg of Calcium & 600 IU of vitamin D. The patient was instructed to perform monthly self-breast exams and to schedule an annual exam in a year; All questions answered and the patient verbalized understanding. Instructed the patient to schedule annual exam in a year Coding Level of Care Code Est Pt Prev Care 40-64y(47811) Diagnoses Well woman exam Z01.419
== END 2023-12-05 14:21 | disposition home or self-care (01) ==
LOC: HO.HWS 13:57
PROVIDERS: PCP Family Medicine; Visit Provider Obstetrics & Gynecology
DX: Z01.419 Encounter for gynecological examination (general) (routine) without abnormal findings (principal)
CPT/HCPCS: 99396

== ENCOUNTER → 2023-12-05 13:57 | Outpatient (BNVA) | payer OTHER, SELFPAY | PROVIDERS: PCP Family Medicine; Visit Provider Obstetrics & Gynecology ==